=== PATIENT | female | born 1965 | race African-American/Black ===

== ENCOUNTER 2024-06-24 23:21 | Inpatient (IN) | payer OTHER, SELFPAY ==
--- NOTE | ~2024-06-24 | XR_ITS ---
EXAMINATION: X-ray lumbar spine. CLINICAL INFORMATION: Status post fall. COMPARISON: No priors. TECHNIQUE: 4 views lumbar spine. FINDINGS: Grade 1 anterolisthesis L4-5 and to a lesser extent L5-S1. Facet joint hypertrophy at the L4-5 and L5-S1 levels. Endplate sclerosis at multiple levels. Decreased intervertebral disc height at L5-S1. Levoconvex curvature apex at L3. No acute cortical disruption. No lytic or blastic lesions. XR/XR lumbar spine 4V min IMPRESSION: Spondylosis L4-5 and L5-S1 resulting in grade 1 anterolisthesis. No acute fracture. Electronically signed by: Marco Antonio Magdaleno MD 06/29/2024 09:44 AM MARCO
[2024-06-24 23:29] VITALS: BP 122/65; PULSE 69; RESP 18; TEMP 36.1; O2SAT 95; BMI 47.7
[2024-06-24 23:52] LABS: MANUAL DIFF FLAG NO
[2024-06-24 23:53] LABS: Basophils Percent Auto 0.4 % (0-2); Eosinophils Absolute Auto 0.1 X10*3/uL (0.0-0.4); Eosinophils Percent Auto 1.8 % (0-4); Hematocrit 39.8 % (37.0-47.0); Hemoglobin 12.7 g/dl (12.0-16.0); Imm Gran Abs Auto 0.02 X10*3/uL (0.00-0.03); Imm Gran Pct Auto 0.3 % (0.0-0.4); Lymphocytes Percent Auto 25.1 % (20-40); Mean Corpuscular HGB Conc 31.9 g/dl (31.0-35.0); Mean Corpuscular Hemoglobin 25.2 pg (27.0-33.0); Mean Platelet Volume 9.1 fL (9.4-12.3); Monocytes Absolute Auto 0.6 X10*3/uL (0.1-1.2); Monocytes Percent Auto 8.1 % (2-11); Neutrophils Percent Auto 64.3 % (45-73); Platelet Count 260 X10*3/uL (160-400); Red Blood Count 5.04 X10*6/uL (4.20-5.50); Red Cell Distribution Width 14.5 % (11.0-16.0); White Blood Count 7.8 X10*3/uL (4.8-10.8)
--- NOTE | 2024-06-25 00:04 | ED.PSYCH ---
HPI - Psych General Chief Complaint: Psychiatric Symptoms Stated Complaint: paranoid Time Seen by Provider: 06/24/24 23:42 Source: patient and EMS Mode of arrival: EMS Limitations: no limitations History of Present Illness ED Provider: Dr. Ngozi Mast HPI Narrative: Patient comes to the emergency room complaining of feeling paranoid, scared of any went home I enter her property. Patient states that for about 6 months she has been seeing shadows moving around. Patient states that this is not the 1st time it happens, happened a few years ago but it only lasted for a few days. Patient states that for the last 6 months she keeps telling herself that she is okay. However, patient now has suicidal thoughts, has considered slitting her throat. Denies hurting herself today prior to arrival. Patient states that she takes her anxiety/depression medications as prescribed Related Data Home Medications ?Medication ?Instructions ?Recorded ?Confirmed albuterol 90 mcg-budesonide 80 2 inh inhalation Q4H PRN wheezing 06/24/24 06/24/24 mcg/actuation HFA aerosol inhaler (Airsupra) lamotrigine 250 mg tablet,extended 250 mg PO DAILY 06/24/24 06/24/24 release 24 hr melatonin 10 mg tablet 10 mg PO BEDTIME 06/24/24 06/24/24 venlafaxine 225 mg tablet,extended 225 mg PO DAILY 06/24/24 06/24/24 release 24 hr gabapentin 600 mg tablet 1,200 mg PO TID 06/25/24 06/25/24 levocetirizine 5 mg tablet 5 mg PO DAILY PRN Allergy Symptoms 06/25/24 06/25/24 Allergies Allergy/AdvReac Type Severity Reaction Status Date / Time seafood Allergy Itching Verified 06/24/24 23:32 Review of Systems Review of Systems: Constitutional : No Weight loss, No Fever, No Chills, No Night Sweats, No Fatigue, No Malaise ENT/Mouth : No Hearing loss, No Ear Pain, No Nasal Congestion, No Sinus Pain, No Hoarseness, No sore throat, No Rhinorrhea, No Swallowing Difficulty Eyes: No Eye Pain, No Swelling, No Redness, No Foreign Body, No Discharge, No Vision Changes Cardiovascular : No Chest Pain, No SOB, No Dyspnea on Exertion, No Orthopnea, No Edema, No Palpitations Respiratory : No Cough, No Sputum, No Wheezing, No Smoke Exposure, No Dyspnea Gastrointestinal : No Nausea, No Vomiting, No Diarrhea, No Constipation, No abdominal Pain, No Hematochezia, No Melena Genitourinary : no irregular bleeding, No Dysuria, No Urinary Frequency, No Hematuria, No Urinary Incontinence, No Urgency, No Flank Pain, No Urinary Flow Changes, No Hesitancy Musculoskeletal : No joint pain, No Myalgias, No Joint Swelling Skin : No Skin Lesions, No rash Neuro : No Weakness, No Numbness, No Paresthesias, No Loss of Consciousness, No Dizziness, No Headache Psych : Complaining of anxiety, depression, seeing shadows for the last 6 months, denies HI, states that she has considered slitting her throat Heme/Lymph: No Bruising, No Bleeding,No Lymphadenopathy Endocrine : No Polyuria, No Polydipsia, No Temperature Intolerance PMFSH Past Medical History Medical History Anxiety and depression Social History Social History Advance Directives: No Advance Directives Information Provided: Yes Do you have a plan to hurt others: No Plan Physical Exam Vital Signs: Vital Signs: Last Vital Signs Temp 97 F 06/24/24 23:29 Pulse 69 06/24/24 23:29 Resp 18 06/24/24 23:29 BP 122/65 06/24/24 23:29 Pulse Ox 95 06/24/24 23:29 O2 Del Method Room Air 06/24/24 23:29 BMI result Body Mass Index 47.7 Const: Other: Appearance: Alert. Oriented X3. No acute distress. Eyes: Pupils equal, round and reactive to light. ENT: Pharynx normal. Neck: Normal inspection. Neck supple. No lymph nodes noted. No crepitus CVS: Normal heart rate and rhythm. Pulses normal. Normal S1 and S2 Respiratory: No respiratory distress. Breath sounds normal. No Wheezing. No rales Abdomen: Soft and nontender. No rigidity. No distention. Skin: Skin warm and dry. Normal skin color. Normal skin turgor. Extremities: No lower extremity edema. No Lacerations. No Rash Neuro: Oriented X 3. No motor deficit. No sensory deficit. Moving all extremities. No slurred speech. CN 2 through 12 grossly intact Psych: calm, cooperative, tearful Course Course Course Narrative: Prior to coming to the hospital, patient was seen by [facility]. Disposition is still pending Patient is on a Section 12 Care team consult pending Physician observation started at 00:05 Medical Decision Making Medical Decision Making MDM Narrative: Patient's hematology chemistries do not show any acute abnormality, alcohol level negative Care team: Recommendations inpatient bed search. Patient remains on a Section 12 Urinalysis and urine toxicology pending Differential Diagnosis Differential Diagnoses: The differential diagnosis associated with the presentation includes (Anxiety, depression, bipolar disorder, schizophrenia) Admission/Observation Consideration of admission/observation: Escalation of care including admission/observation considered (Patient is under a section 12 waiting to be seen by the care team to determine patient's disposition, may need inpatient level of care) Lab Data 06/24/24 23:47 06/24/24 23:47 Labs: Lab Results 06/24/24 Range/Units 23:47 WBC 7.8 (4.8-10.8) X10*3/uL RBC 5.04 (4.20-5.50) X10*6/uL Hgb 12.7 (12.0-16.0) g/dl Hct 39.8 (37.0-47.0) % MCV 79.0 L (80.0-98.0) fL MCH 25.2 L (27.0-33.0) pg MCHC 31.9 (31.0-35.0) g/dl RDW 14.5 (11.0-16.0) % Plt Count 260 (160-400) X10*3/uL MPV 9.1 L (9.4-12.3) fL Immature Gran % (Auto) 0.3 (0.0-0.4) % Neut % (Auto) 64.3 (45-73) % Lymph % (Auto) 25.1 (20-40) % [place]ham % (Auto) 8.1 (2-11) % Eos % (Auto) 1.8 (0-4) % Baso % (Auto) 0.4 (0-2) % Lymph # (Auto) 2.0 (1.2-4.9) X10*3/uL [place]ham # (Auto) 0.6 (0.1-1.2) X10*3/uL Eos # (Auto) 0.1 (0.0-0.4) X10*3/uL Baso # (Auto) 0.0 (0.0-0.2) X10*3/uL Abs Immat Gran (auto) 0.02 (0.00-0.03) X10*3/uL Absolute Neuts (auto) 5.0 (2.0-8.3) x10*3/uL Absolute Nucleated RBC 0.000 (0.0-0.012) X10*3/uL Nucleated RBC % (auto) 0.0 (0.0-0.2) /100WBC Sodium 140 (135-145) mmol/L Potassium 4.1 (3.3-5.1) mmol/L Chloride 106 (96-108) mmol/L Carbon Dioxide 26 (22-29) mmol/L Anion Gap 12 (12-20) BUN 9 (9-16) mg/dL Creatinine 0.82 (0.5-1.4) mg/dL Estim Creat Clear Calc 95.9 Estimated GFR > 60 Random Glucose 101 (60-115) mg/dL Calcium 9.7 (8.4-10.2) mg/dL Total Bilirubin 0.4 (0.0-1.0) mg/dL AST 23 (5-31) U/L ALT 15 (0-31) U/L Alkaline Phosphatase 87 (39-117) U/L Total Protein 7.9 (6.5-8.0) g/dL Albumin 4.3 (3.5-5.0) g/dL Salicylates < 5.0 L (15-30) mg/dL Acetaminophen < 3 (<30) mcg/mL Ethyl Alcohol < 10 mg/dL Critical Care Time Critical Care Time Critical Care Time: Yes Total Critical Care Time: 35 Attestation: I have personally provided critical care time. Time includes review of lab data, radiology results, discussion with consultants, and monitoring for potential decompensation. Intervention performed as documented. Discharge Plan Discharge Clinical Impression: Suicidal ideation, Paranoid, Visual hallucination Patient Disposition: Still a Patient Prescriptions: No Action venlafaxine 225 mg tablet extended release 24hr 225 mg PO DAILY lamotrigine 250 mg tablet extended release 24hr 250 mg PO DAILY Airsupra 90-80 mcg/actuation HFA aerosol inhaler 2 inh inhalation Q4H PRN (Reason: wheezing) melatonin 10 mg tablet 10 mg PO BEDTIME gabapentin 600 mg tablet 1,200 mg PO TID levocetirizine 5 mg tablet 5 mg PO DAILY PRN (Reason: Allergy Symptoms) Print Language: Belizean
[2024-06-25 00:09] LABS: Alanine Aminotransferase 15 U/L (0-31); Albumin Level 4.3 g/dL (3.5-5.0); Alkaline Phosphatase 87 U/L (39-117); Anion Gap 12 (12-20); Aspartate Amino Transferase 23 U/L (5-31); Bilirubin Total 0.4 mg/dL (0.0-1.0); Blood Urea Nitrogen 9 mg/dL (9-16); Calcium 9.7 mg/dL (8.4-10.2); Carbon Dioxide 26 mmol/L (22-29); Chloride 106 mmol/L (96-108); Creatinine Clr Calc Pharmacy 95.9; Estimated Glomerular Filt Rate > 60; Ethanol < 10 mg/dL; Glucose Random 101 mg/dL (60-115); Potassium 4.1 mmol/L (3.3-5.1); Sodium 140 mmol/L (135-145); Total Protein 7.9 g/dL (6.5-8.0)
[2024-06-25 00:10] LABS: Acetaminophen LAB < 3 mcg/mL (<30); Salicylate < 5.0 mg/dL (15-30)
[2024-06-25 00:14] LABS: Bacteria Urine 1+ (None Seen); Hyaline Casts Urine 0-2 /LPF (0-2)
[2024-06-25 00:18] LABS: Appearance Urine Hazy; Color Urine Yellow; Glucose Urine UA Negative (Negative); Leukocyte Esterase Urine Trace (Negative); Nitrite Urine Negative (Negative); Specific Gravity - Urine >= 1.030 (1.005-1.025); UACC Culture Trigger YES; UMIC TRIGGER UACC YES; Urine Blood Trace (Negative); Urine Ketones Trace mg/dL (Negative); Urine Protein Trace mg/dL (Neg-Trace)
[2024-06-25 00:23] LABS: Amphetamine Screen Urine Not Detected (Not Detect); Barbiturates, Urine Not Detected (Not Detect); Benzodiazepines Screen Urine Not Detected (Not Detect); Buprenorphine Scr Not Detected (Not Detect); Cannabinoid Screen Urine POSITIVE (Not Detect); Cocaine Screen Urine Not Detected (Not Detect); Fentanyl, urine Not Detected (Not Detect); Methadone Screen, Urine Not Detected (Not Detect); Opiate Screen Urine Not Detected (Not Detect); Oxycodone Screen Urine Not Detected (Not Detect); Phencyclidine Screen Urine Not Detected (Not Detect)
--- NOTE | 2024-06-25 06:18 | PC.NURSE ---
Patient slept through the night, no distress observed/reported, disposition per [facility] is section 12 inpatient bed search, 15 minutes safety check, no behavior and safety concerns, VSS, med rec completed/pending provider's approval will continue to monitor
[2024-06-25 07:31] VITALS: BP 152/79; PULSE 78; RESP 18; TEMP 36.7; O2SAT 94
--- NOTE | 2024-06-25 09:43 | PC.NURSE ---
Awaiting med verification per pharmacy at this time.
--- NOTE | 2024-06-25 10:08 | PHA.MEDREC ---
Addendum entered by Yohannes Su RPh 06/25/24 10:27: MED REC CHECKED BY [facility] Original Note: Pharmacy Consult ? Medication Reconciliation Pharmacy has completed the medication reconciliation. Spoke with patient to confirm medications. She has not started venlafaxine 225, it needs a PA so she has not picked it up yet, she is still taking the 150 mg. Melatonin and levocetirizine are as needed. She confirmed gabapentin dosing. She is no longer taking Mounjaro, last had 2 weeks ago.
--- NOTE | 2024-06-25 10:12 | PC.NURSE ---
Awaiting pharmacy verification for 09:00 meds
[2024-06-25] MEDS: Venlafaxine HCl ER 75 MG CAP.ER.24H 150 MG PO (11:19)
[2024-06-25] MEDS: Gabapentin 600 MG TABLET 1200 MG PO ×3 (11:19→20:38)
[2024-06-25 17:28] VITALS: BP 148/75; PULSE 66; RESP 13; TEMP 36.2; O2SAT 95
[2024-06-25] MEDS: Melatonin 3 MG TABLET 9 MG PO (20:38)
[2024-06-25] MEDS: lamoTRIgine 100 MG TABLET PO (20:38)
--- NOTE | 2024-06-25 20:52 | PC.NURSE ---
patient calm and cooperative at this time resting comfortably in room watching TV with no complaints.
--- NOTE | 2024-06-25 23:30 | PC.NURSE ---
assumed care for this patient at 2330; patient awake and ambulating through the unit to the bathroom and back to room with steady gait. Given water per request.
--- NOTE | 2024-06-26 | ECG_ITS ---
Test Reason : PROLONGED QTC Blood Pressure : / mmHG Vent. Rate : 062 BPM Atrial Rate : 062 BPM P-R Int : 186 ms QRS Dur : 098 ms QT Int : 416 ms P-R-T Axes : 065 -11 -26 degrees QTc Int : 422 ms Normal sinus rhythm Nonspecific ST and T wave abnormality T inversions inferior leads Abnormal ECG No previous ECGs available Referred By: Ngozi Mast Electronically Signed By:EDE STORM
[2024-06-26 01:30] VITALS: BP 142/76; PULSE 80; RESP 17; TEMP 36.8; O2SAT 94
--- NOTE | 2024-06-26 07:51 | PC.NURSE ---
Assumed care of patient at 0645, patient appears to be in no apparent distress this am, calm and cooperative, alert and oriented x4. Patient aware of plan of care for inpatient bedsearch
[2024-06-26] MEDS: Gabapentin 600 MG TABLET 1200 MG PO ×3 (08:19→20:12)
[2024-06-26] MEDS: Venlafaxine HCl ER 75 MG CAP.ER.24H 150 MG PO (08:19)
[2024-06-26] MEDS: lamoTRIgine 100 MG TABLET PO ×2 (08:19→20:11)
[2024-06-26 14:53] VITALS: BP 135/62; PULSE 77; RESP 18; TEMP 36.5; O2SAT 95; BMI 46.0
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
[2024-06-26] MEDS: Flu Vacc TS2024-25(6mos up)/PF 0.5 ML SYRINGE IM (18:59)
[2024-06-26 20:00] VITALS: BP 138/65; PULSE 68; RESP 18; TEMP 36.5; O2SAT 96
[2024-06-26] MEDS: Melatonin 3 MG TABLET 9 MG PO (20:13)
[2024-06-27 08:00] VITALS: BP 131/63; PULSE 73; RESP 16; TEMP 36.4; O2SAT 93
[2024-06-27] MEDS: Gabapentin 600 MG TABLET 1200 MG PO ×3 (08:35→22:56)
[2024-06-27] MEDS: Venlafaxine HCl ER 75 MG CAP.ER.24H 150 MG PO (08:35)
[2024-06-27] MEDS: lamoTRIgine 100 MG TABLET PO ×2 (08:36→22:56)
[2024-06-27] MEDS: Nystatin Powder 15 GM BOTTLE 1 APPL TOPICAL ×2 (09:01→23:04)
[2024-06-27 09:41] LABS: Estimated Average Glucose 111 mg/dL; Hemoglobin A1C 118.1235 umol/L; Hemoglobin A1c % 5.5 % (<6.0); Total Hemoglobin (HGBA1C) 3205.1357 umol/L
[2024-06-27 09:54] LABS: Cholesterol 189 mg/dL (<200); HDL Cholesterol 50 mg/dL (>40); LDL Cholesterol Calculated 128 mg/dL (<100); Triglycerides 58 mg/dL (<150)
[2024-06-27 10:09] LABS: TSH reflex Free T4 1.66 uIU/mL (0.32-4.0)
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
[2024-06-27] MEDS: Milk of Magnesia 30 ML ORAL.SUSP PO (18:34)
[2024-06-27 19:37] VITALS: BP 137/79; PULSE 67; RESP 16; TEMP 36.1; O2SAT 97
[2024-06-27] MEDS: Melatonin 3 MG TABLET 9 MG PO (22:56)
[2024-06-27] MEDS: OLANZapine 5 MG TABLET PO (23:16)
--- NOTE | 2024-06-28 06:38 | PC.RT ---
pt did not go on cpap due to no sitter available.
[2024-06-28 08:00] VITALS: BP 117/58; PULSE 59; RESP 16; TEMP 36.3; O2SAT 96
[2024-06-28] MEDS: OLANZapine 5 MG TABLET PO ×2 (08:41→20:36)
[2024-06-28] MEDS: Gabapentin 600 MG TABLET 1200 MG PO ×3 (08:41→20:36)
[2024-06-28] MEDS: Venlafaxine HCl ER 75 MG CAP.ER.24H 150 MG PO (08:41)
[2024-06-28] MEDS: lamoTRIgine 100 MG TABLET PO ×2 (08:41→20:36)
--- NOTE | 2024-06-28 09:15 | MHC.AU.PHL ---
Hearing Instrument Fitting- Pediatric- Left Ear Date of Visit: Diploma Medical Assistant Used: Hearing Instrument(s) Dispensed: Left Ear: Special Services Supervisor: Model: Serial Number: Repair Warranty: Loss and Damage Warranty: Service Plan: Battery Size: Color: Patrol Judge: Tubing: Type of Dome: Type of Mold: Type of Wax Guard: Accessories/Assistive Technology: Summary of Fitting: Recommendations: Recommendations: Recommendations: Diagnosis Code(s): Primary Diagnosis: Secondary Diagnosis: Services Performed: Hearing Aid Evaluation Type: Ear Impression (Quantity): Earmold (Quantity): Swim Mold (Quantity): Musician's Plug (Quantity): METZGER Dispensing Fees: [employer]GER Product Codes: Fitting Accessories: METZGER Accessories (Quantity): Accessory Description: Hearing Aid Fitting Services: Number of Individual Battery Cells: Package of Wax Guards: METZGER Purchased through [facility] or Outside Vendor: [employer] Maintenance, Minor Repair (Quantity): Patrol Judge Replaced, Out of Warranty: Domes/Tubes: Out of Warranty Repair by Special Services Supervisor: Extended Warranty (1 or 2 Instruments): Cerumen Removal: Loss and Damage Replacement Fee: METZGRE Non-Quantity Charges: Signature: Student/Clinical Fellow: I have reviewed/agreed with student/fellow documentation: Provider:
--- NOTE | 2024-06-28 10:18 | HO.PSYCHPN ---
Subjective Subjective Date of Service: 06/28/24 Reason For Visit: psychosis/SI Subjective Notes: Conditional Voluntary Healthcare Proxy: No Guardianship: No Medical Problems Affecting Mental Status: No Interim History: I have been tired today. I showered, changed the linen, my clothes. I was able to sit in the kitchen and not feel scared, I did feel I needed to get out of the shower quickly. I think the med is starting to work. Pt awake, in bed, reports sedation-?from Olanzapine or depression- I was like this before you gave me new medicine. Less irritable, less fearful she reports. Medication Compliance: Yes Side effects from medications: Yes (?sedation) Attending Groups: No Review of Systems Acute medical concerns: No Medical Review of Systems: unchanged Review of Systems Review of Systems denies Mental Status Exam Mental Status Exam Patient Appearance: Fatigued and Appropriate Patient Orientation: Person, Place, Time and Situation Level of Consciousness: Sedated and Alert Patient Behavior: Talkative, Cooperative, Fatigued, Isolative and Good Eye Contact Mood Description: Flat Affect Description: Flat Patient Cognition Impaired: No Ability to Follow Directions: Good Speech Pattern: Spontaneous Speech Memory Description: Episodic Impaired Hallucinations: None (denies) Delusions: Paranoid Ideation (mild, in the shower) Perceptual Disturbances: Depersonalization and Derealization Thought Process: Rumination Thought Content: positive for Perseveration and positive for Suicidal Ideation (denies) Depressive Symptoms: Sleeping More Than Usual, Increased Fatigue and Thoughts of /Suicide (denies) Judgement: Fair Diagnostics Vital Signs (24Hr): Vital Signs - 24 hr 06/27/24 19:37 06/28/24 08:00 Temperature 96.9 F 97.3 F Pulse Rate 67 59 Respiratory Rate 16 16 Blood Pressure 137/79 117/58 L Pulse Oximetry 97 96 Oxygen Delivery Method Room Air Room Air BMI result Body Mass Index 46.0 Labs 06/24/24 23:47 06/24/24 23:47 Labs: Laboratory Results - last 48 hr 06/27/24 09:05 Estimat Average Glucose 111 Hemoglobin A1c % 5.5 Triglycerides 58 Cholesterol 189 LDL Cholesterol, Calc 128 H HDL Cholesterol 50 TSH 1.66 Medications Medications Current Medications Acetaminophen (Acetaminophen 325 Mg Tablet) 650 mg PO Q6H PRN PRN Reason: Headache/Pain Mild Scale (1-3) Al Hydroxide/Mg Hydroxide (Magnesium Hydrox/Alum Hydrox 30 Ml Oral.Susp) 30 ml PO Q6H PRN PRN Reason: Heartburn/Nausea Gabapentin (Gabapentin 600 Mg Tablet) 1,200 mg PO TID [facility] Last Admin: 06/28/24 08:41 Dose: 1,200 mg Hydroxyzine HCl (Hydroxyzine Hcl 25 Mg Tablet) 25 mg PO Q6H PRN PRN Reason: Anxiety Lamotrigine (Lamotrigine 100 Mg Tablet) 100 mg PO BID [facility] Last Admin: 06/28/24 08:41 Dose: 100 mg Loratadine (Loratadine 10 Mg Tablet) 10 mg PO DAILY PRN PRN Reason: Allergy Symptoms Magnesium Hydroxide (Milk Of Magnesia 30 Ml Oral.Susp) 30 ml PO DAILY PRN PRN Reason: Constipation Last Admin: 06/27/24 18:34 Dose: 30 ml Melatonin (Melatonin 3 Mg Tablet) 9 mg PO BEDTIME [facility] Last Admin: 06/27/24 22:56 Dose: 9 mg Nicotine (Nicotine 21 Mg Patch.Td24) 21 mg TRANSDERMA DAILY PRN PRN Reason: smoking cessation Nicotine Polacrilex (Nicotine Polacrilex 2 Mg Gum) 4 mg BUCCAL Q2H PRN PRN Reason: Nicotine Cravings Non-Formulary Medication (Albuterol-Budesonide [Airsupra]) 2 inhalation INHALE Q4H PRN PRN Reason: wheezing Last Admin: 06/28/24 08:40 Dose: 2 inhalation Nystatin (Nystatin Powder 15 Gm Bottle) 1 appl TOPICAL BID [facility]; Protocol Last Admin: 06/28/24 08:41 Dose: Not Given Olanzapine (Olanzapine 5 Mg Tablet) 5 mg PO TID PRN PRN Reason: agitation Olanzapine (Olanzapine 5 Mg Tablet) 5 mg PO BID [facility] Last Admin: 06/28/24 08:41 Dose: 5 mg Trazodone HCl (Trazodone Hcl 50 Mg Tablet) 50 mg PO BEDTIME MRX1 PRN PRN Reason: Insomnia Venlafaxine HCl (Venlafaxine Hcl Er 75 Mg Cap.Er.24h) 150 mg PO DAILY [facility] Last Admin: 06/28/24 08:41 Dose: 150 mg Allergies Allergies Allergy/AdvReac Type Severity Reaction Status Date / Time seafood Allergy Itching Verified 06/24/24 23:32 Assessment & Plan Assessment & Plan (1) Severe recurrent major depression w/psychotic features, mood-congruent: Status: Acute Code(s): F33.3 - Major depressive disorder, recurrent, severe with psychotic symptoms Plan Recurrent major depression with psychosis, ?Schizoaffective disorder. Plan: Admit, CV, 15 minute checks Collateral contacts Diagnostics as needed Medication assessment Olanzapine 5 mg bid Encourage full milieu 06/28/24- Continue plan/regime. Reason for continued inpatient stay Substantial Risk for: rapid decompensation Time Spent With Patient Time: Total time managing care of this patient today ____ minutes.
[2024-06-28 20:00] VITALS: BP 104/58; PULSE 57; RESP 15; TEMP 36.6; O2SAT 95
[2024-06-28] MEDS: Melatonin 3 MG TABLET 9 MG PO (20:36)
[2024-06-29 00:07] VITALS: RESP 20
[2024-06-29 05:30] VITALS: BP 125/61; PULSE 57; TEMP 35.9; O2SAT 98
--- NOTE | 2024-06-29 05:46 | PC.NURSE ---
At approximately 0525, this screen writer was notified by staff that this patient had fallen.This screen writer entered the patient's room to see the patient sitting just inside the bathroom doorway. There were no injuries or deformities noted. The patient reported that she had bent over to put her sock on, and fell on my butt. VSS. Appropriate parties notified and patient assisted to chair.
[2024-06-29 06:12] VITALS: BP 125/61; PULSE 57; RESP 15; TEMP 35.9
[2024-06-29 07:51] VITALS: BP 93/44; PULSE 51; TEMP 36.2; O2SAT 96
[2024-06-29] MEDS: Venlafaxine HCl ER 75 MG CAP.ER.24H 150 MG PO (10:06)
[2024-06-29] MEDS: Gabapentin 600 MG TABLET 1200 MG PO ×3 (10:06→21:36)
[2024-06-29] MEDS: OLANZapine 5 MG TABLET PO (10:07)
[2024-06-29] MEDS: lamoTRIgine 100 MG TABLET PO ×2 (10:07→21:35)
--- NOTE | 2024-06-29 14:31 | P.PNPSI_ITS ---
Subjective Subjective Date of Service: 06/29/24 Reason For Visit: psychosis/SI Subjective Notes: Conditional Voluntary Healthcare Proxy: No Guardianship: No Medical Problems Affecting Mental Status: No Interim History: Team report pt fell early this a.m. LS Spine xray ordered Reports ongoing SI, voices. Reports hx of ECT. Consult requested. Discussed ECT and feeling COVID did interfere with completion of treatments- they sent me to a covid unit, I felt they did not want me around. PT consult ordered for walker use-pt states she would feel more comfortable with added support from a walker. Medication Compliance: Yes Side effects from medications: No Attending Groups: Intermittent Review of Systems Acute medical concerns: No Medical Review of Systems: unchanged Review of Systems Review of Systems as noted in HPI Mental Status Exam Mental Status Exam Patient Appearance: Fatigued and Appropriate Patient Orientation: Person, Place, Time and Situation Level of Consciousness: Sedated and Alert Patient Behavior: Talkative, Cooperative, Fatigued, Isolative and Good Eye Contact Mood Description: Flat Affect Description: Flat Patient Cognition Impaired: No Ability to Follow Directions: Good Speech Pattern: Spontaneous Speech Memory Description: Episodic Impaired Hallucinations: None (denies) Delusions: Paranoid Ideation (mild, in the shower) Perceptual Disturbances: Depersonalization and Derealization Thought Process: Rumination Thought Content: positive for Perseveration and positive for Suicidal Ideation (denies) Depressive Symptoms: Sleeping More Than Usual, Increased Fatigue and Thoughts of /Suicide (denies) Judgement: Fair Diagnostics Vital Signs (24Hr): Vital Signs - 24 hr 06/28/24 20:00 06/29/24 00:07 06/29/24 05:30 Temperature 98 F 96.6 F L Pulse Rate 57 57 Respiratory Rate 15 20 Blood Pressure 104/58 L 125/61 Pulse Oximetry 95 98 Oxygen Delivery Method Room Air 06/29/24 06:12 06/29/24 07:51 Temperature 96.6 F L 97.1 F Pulse Rate 57 51 Respiratory Rate 15 Blood Pressure 125/61 93/44 L Pulse Oximetry 96 Oxygen Delivery Method Room Air BMI result Body Mass Index 46.0 Labs 06/24/24 23:47 06/24/24 23:47 Imaging Radiology Impressions: ITS Impressions Lumbar Spine X-Ray 06/29/24 09:00 IMPRESSION: Spondylosis L4-5 and L5-S1 resulting in grade 1 anterolisthesis. No acute fracture. Electronically signed by: Marco Antonio Magdaleno MD 06/29/2024 09:44 AM [facility] Medications Medications Current Medications Acetaminophen (Acetaminophen 325 Mg Tablet) 650 mg PO Q6H PRN PRN Reason: Headache/Pain Mild Scale (1-3) Al Hydroxide/Mg Hydroxide (Magnesium Hydrox/Alum Hydrox 30 Ml Oral.Susp) 30 ml PO Q6H PRN PRN Reason: Heartburn/Nausea Gabapentin (Gabapentin 600 Mg Tablet) 1,200 mg PO TID [facility] Last Admin: 06/29/24 10:06 Dose: 1,200 mg Hydroxyzine HCl (Hydroxyzine Hcl 25 Mg Tablet) 25 mg PO Q6H PRN PRN Reason: Anxiety Lamotrigine (Lamotrigine 100 Mg Tablet) 100 mg PO BID [facility] Last Admin: 06/29/24 10:07 Dose: 100 mg Loratadine (Loratadine 10 Mg Tablet) 10 mg PO DAILY PRN PRN Reason: Allergy Symptoms Magnesium Hydroxide (Milk Of Magnesia 30 Ml Oral.Susp) 30 ml PO DAILY PRN PRN Reason: Constipation Last Admin: 06/27/24 18:34 Dose: 30 ml Melatonin (Melatonin 3 Mg Tablet) 9 mg PO BEDTIME [facility] Last Admin: 06/28/24 20:36 Dose: 9 mg Nicotine (Nicotine 21 Mg Patch.Td24) 21 mg TRANSDERMA DAILY PRN PRN Reason: smoking cessation Nicotine Polacrilex (Nicotine Polacrilex 2 Mg Gum) 4 mg BUCCAL Q2H PRN PRN Reason: Nicotine Cravings Non-Formulary Medication (Albuterol-Budesonide [Airsupra]) 2 inhalation INHALE Q4H PRN PRN Reason: wheezing Last Admin: 06/28/24 08:40 Dose: 2 inhalation Nystatin (Nystatin Powder 15 Gm Bottle) 1 appl TOPICAL BID [facility]; Protocol Last Admin: 06/29/24 10:08 Dose: Not Given Olanzapine (Olanzapine 5 Mg Tablet) 5 mg PO TID PRN PRN Reason: agitation Olanzapine (Olanzapine 2.5 Mg Tablet) 2.5 mg PO BID [facility] Trazodone HCl (Trazodone Hcl 50 Mg Tablet) 50 mg PO BEDTIME MRX1 PRN PRN Reason: Insomnia Venlafaxine HCl (Venlafaxine Hcl Er 75 Mg Cap.Er.24h) 150 mg PO DAILY [facility] Last Admin: 06/29/24 10:06 Dose: 150 mg Allergies Allergies Allergy/AdvReac Type Severity Reaction Status Date / Time seafood Allergy Itching Verified 06/24/24 23:32 Assessment & Plan Assessment & Plan (1) Severe recurrent major depression w/psychotic features, mood-congruent: Status: Acute Code(s): F33.3 - Major depressive disorder, recurrent, severe with psychotic symptoms Plan Recurrent major depression with psychosis, ?Schizoaffective disorder. Plan: Admit, CV, 15 minute checks Collateral contacts Diagnostics as needed Medication assessment Olanzapine 5 mg bid Encourage full milieu 06/28/24- Continue plan/regime. 06/29/24_ ECT consult Reason for continued inpatient stay Substantial Risk for: rapid decompensation Time Spent With Patient Time: Total time managing care of this patient today ____ minutes.
[2024-06-29 17:26] VITALS: BMI 46.1
[2024-06-29 20:00] VITALS: BP 117/59; PULSE 69; RESP 16; TEMP 35.9; O2SAT 69
[2024-06-29] MEDS: Melatonin 3 MG TABLET 9 MG PO (21:35)
[2024-06-29] MEDS: OLANZapine 2.5 MG TABLET PO (21:35)
[2024-06-30 00:10] VITALS: RESP 16
--- NOTE | 2024-06-30 05:09 | PC.NURSE ---
Patient awake at this time. 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
[2024-06-30 08:26] VITALS: BP 111/60; PULSE 56; TEMP 35.9; O2SAT 97
[2024-06-30] MEDS: Venlafaxine HCl ER 75 MG CAP.ER.24H 150 MG PO (09:36)
[2024-06-30] MEDS: lamoTRIgine 100 MG TABLET PO ×2 (09:36→20:46)
[2024-06-30] MEDS: Gabapentin 600 MG TABLET 1200 MG PO ×3 (09:37→20:46)
[2024-06-30] MEDS: OLANZapine 2.5 MG TABLET PO ×2 (09:37→20:47)
--- NOTE | 2024-06-30 09:52 | P.PNPSI_ITS ---
Subjective Subjective Date of Service: 06/30/24 Reason For Visit: psychosis/SI Subjective Notes: Conditional Voluntary Healthcare Proxy: No Guardianship: No Medical Problems Affecting Mental Status: No Interim History: Pt seen in [facility] today, walking without her walker. ECT consult pending No questions or concerns today. I just want to feel better, and I feel everyone is working toward this Engaged she reports with peers and [facility]. Medication Compliance: Yes Side effects from medications: Yes (tired) Attending Groups: Intermittent Review of Systems Acute medical concerns: No Medical Review of Systems: unchanged Review of Systems Review of Systems Yes all other systems are reviewed and are negative Mental Status Exam Mental Status Exam Patient Appearance: Fatigued and Appropriate Patient Orientation: Person, Place, Time and Situation Level of Consciousness: Sedated and Alert Patient Behavior: Talkative, Cooperative, Fatigued, Isolative and Good Eye Contact Mood Description: Flat Affect Description: Flat Patient Cognition Impaired: No Ability to Follow Directions: Good Speech Pattern: Spontaneous Speech Memory Description: Episodic Impaired Hallucinations: None (denies) Delusions: Paranoid Ideation (mild, in the shower) Perceptual Disturbances: Depersonalization and Derealization Thought Process: Rumination Thought Content: positive for Perseveration and positive for Suicidal Ideation (denies) Depressive Symptoms: Sleeping More Than Usual, Increased Fatigue and Thoughts of /Suicide (denies) Judgement: Fair Diagnostics Vital Signs (24Hr): Vital Signs - 24 hr 06/29/24 20:00 06/30/24 00:10 06/30/24 08:26 Temperature 96.7 F L 96.6 F L Pulse Rate 69 56 Respiratory Rate 16 16 Blood Pressure 117/59 L 111/60 Pulse Oximetry 69 L 97 Oxygen Delivery Method Room Air Room Air BMI result Body Mass Index 46.1 Labs 06/24/24 23:47 06/24/24 23:47 Imaging Radiology Impressions: ITS Impressions Lumbar Spine X-Ray 06/29/24 09:00 IMPRESSION: Spondylosis L4-5 and L5-S1 resulting in grade 1 anterolisthesis. No acute fracture. Electronically signed by: Marco Antonio Magdaleno MD 06/29/2024 09:44 AM [facility] Medications Medications Current Medications Acetaminophen (Acetaminophen 325 Mg Tablet) 650 mg PO Q6H PRN PRN Reason: Headache/Pain Mild Scale (1-3) Al Hydroxide/Mg Hydroxide (Magnesium Hydrox/Alum Hydrox 30 Ml Oral.Susp) 30 ml PO Q6H PRN PRN Reason: Heartburn/Nausea Gabapentin (Gabapentin 600 Mg Tablet) 1,[address] [facility] Last Admin: 06/30/24 09:37 Dose: 1,200 mg Hydroxyzine HCl (Hydroxyzine Hcl 25 Mg Tablet) 25 mg PO Q6H PRN PRN Reason: Anxiety Lamotrigine (Lamotrigine 100 Mg Tablet) [address] [facility] Last Admin: 06/30/24 09:36 Dose: 100 mg Loratadine (Loratadine 10 Mg Tablet) 10 mg PO DAILY PRN PRN Reason: Allergy Symptoms Magnesium Hydroxide (Milk Of Magnesia 30 Ml Oral.Susp) 30 ml PO DAILY PRN PRN Reason: Constipation Last Admin: 06/27/24 18:34 Dose: 30 ml Melatonin (Melatonin 3 Mg Tablet) [address] [facility] Last Admin: 06/29/24 21:35 Dose: 9 mg Nicotine (Nicotine 21 Mg Patch.Td24) 21 mg TRANSDERMA DAILY PRN PRN Reason: smoking cessation Nicotine Polacrilex (Nicotine Polacrilex 2 Mg Gum) 4 mg BUCCAL Q2H PRN PRN Reason: Nicotine Cravings Non-Formulary Medication (Albuterol-Budesonide [Airsupra]) 2 inhalation INHALE Q4H PRN PRN Reason: wheezing Last Admin: 06/28/24 08:40 Dose: 2 inhalation Nystatin (Nystatin Powder 15 Gm Bottle) [address] [facility]; Protocol Last Admin: 06/30/24 09:37 Dose: Not Given Olanzapine (Olanzapine 5 Mg Tablet) 5 mg PO TID PRN PRN Reason: agitation Olanzapine (Olanzapine 2.5 Mg Tablet) 2.[address] [facility] Last Admin: 06/30/24 09:37 Dose: 2.5 mg Trazodone HCl (Trazodone Hcl 50 Mg Tablet) 50 mg PO BEDTIME MRX1 PRN PRN Reason: Insomnia Venlafaxine HCl (Venlafaxine Hcl Er 75 Mg Cap.Er.24h) [address] [facility] Last Admin: 06/30/24 09:36 Dose: 150 mg Allergies Allergies Allergy/AdvReac Type Severity Reaction Status Date / Time seafood Allergy Itching Verified 06/24/24 23:32 Assessment & Plan Assessment & Plan (1) Severe recurrent major depression w/psychotic features, mood-congruent: Status: Acute Code(s): F33.3 - Major depressive disorder, recurrent, severe with psychotic symptoms Plan Recurrent major depression with psychosis, ?Schizoaffective disorder. Plan: Admit, CV, 15 minute checks Collateral contacts Diagnostics as needed Medication assessment Olanzapine 5 mg bid Encourage full milieu 06/28/24- Continue plan/regime. 06/30/24- Continue regime Reason for continued inpatient stay Substantial Risk for: rapid decompensation Time Spent With Patient Time: Total time managing care of this patient today ____ minutes.
[2024-06-30 20:00] VITALS: BP 127/87; PULSE 94; RESP 18; TEMP 36.9; O2SAT 97
[2024-06-30] MEDS: Melatonin 3 MG TABLET 9 MG PO (20:46)
[2024-06-30] MEDS: OLANZapine 5 MG TABLET PO (20:47)
[2024-06-30] MEDS: traZODone HCL 50 MG TABLET PO (20:59)
[2024-06-30 23:53] VITALS: RESP 18
[2024-07-01 08:00] VITALS: BP 109/57; PULSE 62; TEMP 36.2; O2SAT 94
[2024-07-01] MEDS: lamoTRIgine 100 MG TABLET PO ×2 (09:04→21:21)
[2024-07-01] MEDS: Gabapentin 600 MG TABLET 1200 MG PO ×3 (09:04→21:22)
[2024-07-01] MEDS: Venlafaxine HCl ER 75 MG CAP.ER.24H 150 MG PO (09:05)
[2024-07-01] MEDS: OLANZapine 2.5 MG TABLET PO ×2 (09:06→21:21)
--- NOTE | 2024-07-01 13:51 | P.PNPSI_ITS ---
Subjective Subjective Date of Service: 07/01/24 Reason For Visit: psychosis/SI Interim History: Met with patient; discussed with team Patient reports that she is starting to feel little better.. She says she feels more awake and noticed herself laughing at times. She also says her head is more clear, her mind more open and the cloud. is lifting.. Discussed patient's medications which she is tolerating well. Agreed to increase venlafaxine dose. Currently no SI Mental Status Exam Mental Status Exam Narrative: Pt is alert and oriented; behavior is cooperative, friendly and calm; patient is not in distress; dressed in hospital attire with unkempt hair but adequate hygiene; mood is described as depressed but a little better and affect congruent, a little brighter; eye contact appropriate; Speech is normal rate, volume and prosody and not pressured; still some psychomotor retardation present; thought process is organized and goal directed; Thought content is on tx, dealing with depression; otherwise pertinent to relevant topics and without any delusional content, paranoid ideations or grandiosity; intermittent SI but currently none; no HI; no AVH. Patients insight and judgment impaired Diagnostics Vital Signs (24Hr): Vital Signs - 24 hr 06/30/24 20:00 06/30/24 23:53 07/01/24 08:00 Temperature 98.4 F 97.1 F Pulse Rate 94 62 Respiratory Rate 18 18 Blood Pressure 127/87 109/57 L Pulse Oximetry 97 94 Oxygen Delivery Method Room Air Room Air BMI result Body Mass Index 46.1 Labs 06/24/24 23:47 06/24/24 23:47 Imaging Radiology Impressions: ITS Impressions Lumbar Spine X-Ray 06/29/24 09:00 IMPRESSION: Spondylosis L4-5 and L5-S1 resulting in grade 1 anterolisthesis. No acute fracture. Electronically signed by: Marco Antonio Magdaleno MD 06/29/2024 09:44 AM [facility] [place] Medications Current Medications Acetaminophen (Acetaminophen 325 Mg Tablet) 650 mg PO Q6H PRN PRN Reason: Headache/Pain Mild Scale (1-3) Al Hydroxide/Mg Hydroxide (Magnesium Hydrox/Alum Hydrox 30 Ml Oral.Susp) 30 ml PO Q6H PRN PRN Reason: Heartburn/Nausea Gabapentin (Gabapentin 600 Mg Tablet) 1,200 mg PO TID [facility] Last Admin: 07/01/24 09:04 Dose: 1,200 mg Hydroxyzine HCl (Hydroxyzine Hcl 25 Mg Tablet) 25 mg PO Q6H PRN PRN Reason: Anxiety Lamotrigine (Lamotrigine 100 Mg Tablet) 100 mg PO BID [facility] Last Admin: 07/01/24 09:04 Dose: 100 mg Loratadine (Loratadine 10 Mg Tablet) 10 mg PO DAILY PRN PRN Reason: Allergy Symptoms Magnesium Hydroxide (Milk Of Magnesia 30 Ml Oral.Susp) 30 ml PO DAILY PRN PRN Reason: Constipation Last Admin: 06/27/24 18:34 Dose: 30 ml Melatonin (Melatonin 3 Mg Tablet) 9 mg PO BEDTIME [facility] Last Admin: 06/30/24 20:46 Dose: 9 mg Nicotine (Nicotine 21 Mg Patch.Td24) 21 mg TRANSDERMA DAILY PRN PRN Reason: smoking cessation Nicotine Polacrilex (Nicotine Polacrilex 2 Mg Gum) 4 mg BUCCAL Q2H PRN PRN Reason: Nicotine Cravings Non-Formulary Medication (Albuterol-Budesonide [Airsupra]) 2 inhalation INHALE Q4H PRN PRN Reason: wheezing Last Admin: 06/28/24 08:40 Dose: 2 inhalation Nystatin (Nystatin Powder 15 Gm Bottle) 1 appl TOPICAL BID [facility]; Protocol Last Admin: 07/01/24 10:03 Dose: Not Given Olanzapine (Olanzapine 5 Mg Tablet) 5 mg PO TID PRN PRN Reason: agitation Last Admin: 06/30/24 20:47 Dose: 5 mg Olanzapine (Olanzapine 2.5 Mg Tablet) 2.5 mg PO BID [facility] Last Admin: 07/01/24 09:06 Dose: 2.5 mg Trazodone HCl (Trazodone Hcl 50 Mg Tablet) 50 mg PO BEDTIME MRX1 PRN PRN Reason: Insomnia Last Admin: 06/30/24 20:59 Dose: 50 mg Venlafaxine HCl (Venlafaxine Hcl Er 75 Mg Cap.Er.24h) 150 mg PO DAILY [facility] Last Admin: 07/01/24 09:05 Dose: 150 mg Allergies Allergies Allergy/AdvReac Type Severity Reaction Status Date / Time seafood Allergy Itching Verified 06/24/24 23:32 Assessment & Plan Assessment & Plan (1) Severe recurrent major depression w/psychotic features, mood-congruent: Status: Acute Code(s): F33.3 - Major depressive disorder, recurrent, severe with psychotic symptoms Plan Recurrent major depression with psychosis, ?Schizoaffective disorder. Hospital course: 06/28/24- Continue plan/regime. 06/30/24- Continue regime 07/01Patient reports that she is starting to feel little better.. She says she feels more awake and noticed herself laughing at times. She also says her head is more clear, her mind more open and the cloud. is lifting.. Discussed patient's medications which she is tolerating well. Agreed to increase venlafaxine dose. Currently no SI Plan: CV, 15 minute checks INCREASE venlafaxine ER to 187.5 Collateral contacts Diagnostics as needed Medication assessment Olanzapine 5 mg bid Encourage full milieu Patient educated on: diagnosis, medication risk/benefits and therapeutic strategies Informed Consent: understands Reason for continued inpatient stay Substantial Risk for: rapid decompensation and med/psych decompensation Time Spent With Patient Time: Total time managing care of this patient today ____ minutes.
[2024-07-01 19:48] VITALS: BP 129/68; PULSE 84; RESP 18; TEMP 36.1; O2SAT 96
[2024-07-01] MEDS: traZODone HCL 50 MG TABLET PO (21:21)
[2024-07-01] MEDS: Melatonin 3 MG TABLET 9 MG PO (21:21)
[2024-07-01] MEDS: Nystatin Powder 15 GM BOTTLE 1 APPL TOPICAL (21:34)
[2024-07-01 23:34] VITALS: RESP 20
[2024-07-02 07:47] VITALS: BP 121/58; PULSE 61; TEMP 35.9; O2SAT 98
[2024-07-02] MEDS: Nystatin Powder 15 GM BOTTLE 1 APPL TOPICAL (10:37)
[2024-07-02] MEDS: OLANZapine 2.5 MG TABLET PO ×2 (10:37→21:23)
[2024-07-02] MEDS: lamoTRIgine 100 MG TABLET PO ×2 (10:37→21:22)
[2024-07-02] MEDS: Gabapentin 600 MG TABLET 1200 MG PO ×3 (10:42→21:21)
--- NOTE | 2024-07-02 14:52 | P.PNPSI_ITS ---
Subjective Subjective Date of Service: 07/02/24 Reason For Visit: psychosis/SI Interim History: With patient; discussed with team Patient feeling more anxious today and did have some SI which was triggered by worries about losing her memory, and other medical comorbidities. She remains feeling overall better from when she came in but is very worried that it will not remain and that SI could return. Diagnostics Vital Signs (24Hr): Vital Signs - 24 hr 07/01/24 19:48 07/01/24 23:34 07/02/24 07:47 Temperature 96.9 F 96.6 F L Pulse Rate 84 61 Respiratory Rate 18 20 Blood Pressure 129/68 121/58 L Pulse Oximetry 96 98 Oxygen Delivery Method Room Air Room Air BMI result Body Mass Index 46.1 Labs 06/24/24 23:47 06/24/24 23:47 Imaging Radiology Impressions: ITS Impressions Lumbar Spine X-Ray 06/29/24 09:00 IMPRESSION: Spondylosis L4-5 and L5-S1 resulting in grade 1 anterolisthesis. No acute fracture. Electronically signed by: Marco Antonio Magdaleno MD 06/29/2024 09:44 AM [facility] Medications Medications Current Medications Acetaminophen (Acetaminophen 325 Mg Tablet) 650 mg PO Q6H PRN PRN Reason: Headache/Pain Mild Scale (1-3) Al Hydroxide/Mg Hydroxide (Magnesium Hydrox/Alum Hydrox 30 Ml Oral.Susp) 30 ml PO Q6H PRN PRN Reason: Heartburn/Nausea Gabapentin (Gabapentin 600 Mg Tablet) 1,200 mg PO TID [facility] Last Admin: 07/02/24 10:42 Dose: 1,200 mg Hydroxyzine HCl (Hydroxyzine Hcl 25 Mg Tablet) 25 mg PO Q6H PRN PRN Reason: Anxiety Lamotrigine (Lamotrigine 100 Mg Tablet) 100 mg PO BID [facility] Last Admin: 07/02/24 10:37 Dose: 100 mg Loratadine (Loratadine 10 Mg Tablet) 10 mg PO DAILY PRN PRN Reason: Allergy Symptoms Magnesium Hydroxide (Milk Of Magnesia 30 Ml Oral.Susp) 30 ml PO DAILY PRN PRN Reason: Constipation Last Admin: 06/27/24 18:34 Dose: 30 ml Melatonin (Melatonin 3 Mg Tablet) 9 mg PO BEDTIME [facility] Last Admin: 07/01/24 21:21 Dose: 9 mg Nicotine (Nicotine 21 Mg Patch.Td24) 21 mg TRANSDERMA DAILY PRN PRN Reason: smoking cessation Nicotine Polacrilex (Nicotine Polacrilex 2 Mg Gum) 4 mg BUCCAL Q2H PRN PRN Reason: Nicotine Cravings Non-Formulary Medication (Albuterol-Budesonide [Airsupra]) 2 inhalation INHALE Q4H PRN PRN Reason: wheezing Last Admin: 07/02/24 10:44 Dose: 2 inhalation Nystatin (Nystatin Powder 15 Gm Bottle) 1 appl TOPICAL BID [facility]; Protocol Last Admin: 07/02/24 10:37 Dose: 1 appl Olanzapine (Olanzapine 5 Mg Tablet) 5 mg PO TID PRN PRN Reason: agitation Last Admin: 06/30/24 20:47 Dose: 5 mg Olanzapine (Olanzapine 2.5 Mg Tablet) 2.5 mg PO BID [facility] Last Admin: 07/02/24 10:37 Dose: 2.5 mg Trazodone HCl (Trazodone Hcl 50 Mg Tablet) 50 mg PO BEDTIME MRX1 PRN PRN Reason: Insomnia Last Admin: 07/01/24 21:21 Dose: 50 mg Venlafaxine HCl 150 mg/ (Venlafaxine HCl 37.5 mg) 187.5 mg PO DAILY [facility] Last Admin: 07/02/24 10:36 Dose: 187.5 mg Allergies Allergies Allergy/AdvReac Type Severity Reaction Status Date / Time seafood Allergy Itching Verified 06/24/24 23:32 Assessment & Plan Assessment & Plan (1) Severe recurrent major depression w/psychotic features, mood-congruent: Status: Acute Code(s): F33.3 - Major depressive disorder, recurrent, severe with psychotic symptoms Plan Recurrent major depression with psychosis, ?Schizoaffective disorder. Hospital course: 06/28/24- Continue plan/regime. 06/30/24- Continue regime 07/01Patient reports that she is starting to feel little better.. She says she feels more awake and noticed herself laughing at times. She also says her head is more clear, her mind more open and the cloud. is lifting.. Discussed patient's medications which she is tolerating well. Agreed to increase venlafaxine dose. Currently no SI 07/02 Patient feeling more anxious today and did have some SI which was triggered by worries about losing her memory, and other medical comorbidities. She remains feeling overall better from when she came in but is very worried that it will not remain and that SI could return. -likely continue titrating venlafaxine Plan: CV, 15 minute checks INCREASE venlafaxine ER to 187.5 Collateral contacts Diagnostics as needed Medication assessment Olanzapine 5 mg bid Encourage full milieu Patient educated on: diagnosis, medication risk/benefits and therapeutic strategies Informed Consent: understands Reason for continued inpatient stay Substantial Risk for: rapid decompensation and med/psych decompensation Time Spent With Patient Time: Total time managing care of this patient today ____ minutes.
--- NOTE | 2024-07-02 14:54 | HO.PSYCHPN ---
Subjective Subjective Date of Service: 07/02/24 Reason For Visit: psychosis/SI Interim History: Met with patient; discussed with team Diagnostics Vital Signs (24Hr): Vital Signs - 24 hr 07/01/24 19:48 07/01/24 23:34 07/02/24 07:47 Temperature 96.9 F 96.6 F L Pulse Rate 84 61 Respiratory Rate 18 20 Blood Pressure 129/68 121/58 L Pulse Oximetry 96 98 Oxygen Delivery Method Room Air Room Air BMI result Body Mass Index 46.1 Labs 06/24/24 23:47 06/24/24 23:47 Imaging Radiology Impressions: ITS Impressions Lumbar Spine X-Ray 06/29/24 09:00 IMPRESSION: Spondylosis L4-5 and L5-S1 resulting in grade 1 anterolisthesis. No acute fracture. Electronically signed by: Marco Antonio Magdaleno MD 06/29/2024 09:44 AM [facility] Medications Medications Current Medications Acetaminophen (Acetaminophen 325 Mg Tablet) 650 mg PO Q6H PRN PRN Reason: Headache/Pain Mild Scale (1-3) Al Hydroxide/Mg Hydroxide (Magnesium Hydrox/Alum Hydrox 30 Ml Oral.Susp) 30 ml PO Q6H PRN PRN Reason: Heartburn/Nausea Gabapentin (Gabapentin 600 Mg Tablet) 1,200 mg PO TID [facility] Last Admin: 07/02/24 10:42 Dose: 1,200 mg Hydroxyzine HCl (Hydroxyzine Hcl 25 Mg Tablet) 25 mg PO Q6H PRN PRN Reason: Anxiety Lamotrigine (Lamotrigine 100 Mg Tablet) 100 mg PO BID [facility] Last Admin: 07/02/24 10:37 Dose: 100 mg Loratadine (Loratadine 10 Mg Tablet) 10 mg PO DAILY PRN PRN Reason: Allergy Symptoms Magnesium Hydroxide (Milk Of Magnesia 30 Ml Oral.Susp) 30 ml PO DAILY PRN PRN Reason: Constipation Last Admin: 06/27/24 18:34 Dose: 30 ml Melatonin (Melatonin 3 Mg Tablet) 9 mg PO BEDTIME [facility] Last Admin: 07/01/24 21:21 Dose: 9 mg Nicotine (Nicotine 21 Mg Patch.Td24) 21 mg TRANSDERMA DAILY PRN PRN Reason: smoking cessation Nicotine Polacrilex (Nicotine Polacrilex 2 Mg Gum) 4 mg BUCCAL Q2H PRN PRN Reason: Nicotine Cravings Non-Formulary Medication (Albuterol-Budesonide [Airsupra]) 2 inhalation INHALE Q4H PRN PRN Reason: wheezing Last Admin: 07/02/24 10:44 Dose: 2 inhalation Nystatin (Nystatin Powder 15 Gm Bottle) 1 appl TOPICAL BID [facility]; Protocol Last Admin: 07/02/24 10:37 Dose: 1 appl Olanzapine (Olanzapine 5 Mg Tablet) 5 mg PO TID PRN PRN Reason: agitation Last Admin: 06/30/24 20:47 Dose: 5 mg Olanzapine (Olanzapine 2.5 Mg Tablet) 2.5 mg PO BID [facility] Last Admin: 07/02/24 10:37 Dose: 2.5 mg Trazodone HCl (Trazodone Hcl 50 Mg Tablet) 50 mg PO BEDTIME MRX1 PRN PRN Reason: Insomnia Last Admin: 07/01/24 21:21 Dose: 50 mg Venlafaxine HCl 150 mg/ (Venlafaxine HCl 37.5 mg) 187.5 mg PO DAILY [facility] Last Admin: 07/02/24 10:36 Dose: 187.5 mg Allergies Allergies Allergy/AdvReac Type Severity Reaction Status Date / Time seafood Allergy Itching Verified 06/24/24 23:32 Assessment & Plan Assessment & Plan (1) Severe recurrent major depression w/psychotic features, mood-congruent: Status: Acute Code(s): F33.3 - Major depressive disorder, recurrent, severe with psychotic symptoms Plan Recurrent major depression with psychosis, ?Schizoaffective disorder. Hospital course: 06/28/24- Continue plan/regime. 06/30/24- Continue regime 07/01Patient reports that she is starting to feel little better.. She says she feels more awake and noticed herself laughing at times. She also says her head is more clear, her mind more open and the cloud. is lifting.. Discussed patient's medications which she is tolerating well. Agreed to increase venlafaxine dose. Currently no SI 07/02 Patient feeling more anxious today and did have some SI which was triggered by worries about losing her memory, and other medical comorbidities. She remains feeling overall better from when she came in but is very worried that it will not remain and that SI could return. -likely continue titrating venlafaxine Plan: CV, 15 minute checks INCREASE venlafaxine ER to 187.5 Collateral contacts Diagnostics as needed Medication assessment Olanzapine 5 mg bid Encourage full milieu Time Spent With Patient Time: Total time managing care of this patient today ____ minutes.
[2024-07-02 20:00] VITALS: BP 142/72; BP 149/79; PULSE 74; TEMP 36.2; O2SAT 98
[2024-07-02] MEDS: traZODone HCL 50 MG TABLET PO (21:20)
[2024-07-02] MEDS: Melatonin 3 MG TABLET 9 MG PO (21:20)
[2024-07-02 23:07] VITALS: RESP 21
[2024-07-03 08:45] VITALS: BP 109/60; PULSE 66; RESP 20; TEMP 36.2; O2SAT 94
[2024-07-03] MEDS: Gabapentin 600 MG TABLET 1200 MG PO ×3 (08:48→20:50)
[2024-07-03] MEDS: lamoTRIgine 100 MG TABLET PO ×2 (08:49→20:50)
[2024-07-03] MEDS: OLANZapine 2.5 MG TABLET PO (08:49)
[2024-07-03] MEDS: Nystatin Powder 15 GM BOTTLE 1 APPL TOPICAL (08:52)
[2024-07-03] MEDS: Lidocaine 4 % Patch ADH..PATCH 1 PATCH TRANSDERMA (10:21)
--- NOTE | 2024-07-03 16:09 | P.PNPSI_ITS ---
Subjective Subjective Date of Service: 07/03/24 Reason For Visit: psychosis/SI Subjective Notes: Conditional Voluntary Healthcare Proxy: No Guardianship: No Medical Problems Affecting Mental Status: No Interim History: Yary discussed what happened during a previous hospitalization with a precipitous discharge. It appears she was transferred to medicine for medical care and not given the option to return to psychiatry. She reports feeling thrown out and cast out and fears this will happen here. We decided to discuss discharge daily to help her become more comfortable with planning her care. Venlafaxine increased over the weekend. Pt requested increase in Olanzapine today. Discussed possibly having a meeting with her children to discuss issues at home. She will consider. Today she discussed how helpful it is when she takes classes, feels it helps her memory, her physical and emotional well being. Hoping to get back to this when discharged. Medication Compliance: Yes Side effects from medications: No Attending Groups: Yes Review of Systems Acute medical concerns: No Review of Systems Review of Systems Denied today Mental Status Exam Mental Status Exam Patient Appearance: Appropriate Patient Orientation: Person, Place, Time and Situation Level of Consciousness: Alert Patient Behavior: Talkative and Good Eye Contact Mood Description: Depressed Affect Description: Flat Patient Cognition Impaired: No Ability to Follow Directions: Good Speech Pattern: Spontaneous Speech Memory Description: Intact Hallucinations: None Delusions: Not Present Thought Process: Rumination Thought Content: positive for Perseveration and positive for Suicidal Ideation Depressive Symptoms: Increased Anxiety, Unhappiness and Thoughts of /Suicide Judgement: Fair Diagnostics Vital Signs (24Hr): Vital Signs - 24 hr 07/02/24 20:00 07/02/24 20:00 07/02/24 23:07 Temperature 97.1 F Pulse Rate 74 Respiratory Rate 21 H Blood Pressure 149/79 H 142/72 H Pulse Oximetry 98 Oxygen Delivery Method Room Air 07/03/24 08:45 Temperature 97.1 F Pulse Rate 66 Respiratory Rate 20 Blood Pressure 109/60 Pulse Oximetry 94 Oxygen Delivery Method Room Air Blow By BMI result Body Mass Index 46.1 Labs 06/24/24 23:47 06/24/24 23:47 Imaging Radiology Impressions: ITS Impressions Lumbar Spine X-Ray 06/29/24 09:00 IMPRESSION: Spondylosis L4-5 and L5-S1 resulting in grade 1 anterolisthesis. No acute fracture. Electronically signed by: Marco Antonio Magdaleno MD 06/29/2024 09:44 AM [facility] Medications Medications Current Medications Acetaminophen (Acetaminophen 325 Mg Tablet) 650 mg PO Q6H PRN PRN Reason: Headache/Pain Mild Scale (1-3) Al Hydroxide/Mg Hydroxide (Magnesium Hydrox/Alum Hydrox 30 Ml Oral.Susp) 30 ml PO Q6H PRN PRN Reason: Heartburn/Nausea Capsaicin (Capsaicin 0.025% Cream 60 Gm Tube) 1 appl TOPICAL QID PRN; Protocol PRN Reason: knee pain Gabapentin (Gabapentin 600 Mg Tablet) 1,200 mg PO TID [facility] Last Admin: 07/03/24 15:04 Dose: 1,200 mg Hydroxyzine HCl (Hydroxyzine Hcl 25 Mg Tablet) 25 mg PO Q6H PRN PRN Reason: Anxiety Lamotrigine (Lamotrigine 100 Mg Tablet) 100 mg PO BID [facility] Last Admin: 07/03/24 08:49 Dose: 100 mg Lidocaine (Lidocaine 4 % Patch Adh..Patch) 1 patch TRANSDERMA DAILY [facility]; Protocol Last Admin: 07/03/24 10:21 Dose: 1 patch Loratadine (Loratadine 10 Mg Tablet) 10 mg PO DAILY PRN PRN Reason: Allergy Symptoms Magnesium Hydroxide (Milk Of Magnesia 30 Ml Oral.Susp) 30 ml PO DAILY PRN PRN Reason: Constipation Last Admin: 06/27/24 18:34 Dose: 30 ml Melatonin (Melatonin 3 Mg Tablet) 9 mg PO BEDTIME [facility] Last Admin: 07/02/24 21:20 Dose: 9 mg Nicotine (Nicotine 21 Mg Patch.Td24) 21 mg TRANSDERMA DAILY PRN PRN Reason: smoking cessation Nicotine Polacrilex (Nicotine Polacrilex 2 Mg Gum) 4 mg BUCCAL Q2H PRN PRN Reason: Nicotine Cravings Non-Formulary Medication (Albuterol-Budesonide [Airsupra]) 2 inhalation INHALE Q4H PRN PRN Reason: wheezing Last Admin: 07/02/24 21:25 Dose: 2 inhalation Nystatin (Nystatin Powder 15 Gm Bottle) 1 appl TOPICAL BID [facility]; Protocol Last Admin: 07/03/24 08:52 Dose: 1 appl Olanzapine (Olanzapine 5 Mg Tablet) 5 mg PO TID PRN PRN Reason: agitation Last Admin: 06/30/24 20:47 Dose: 5 mg Olanzapine (Olanzapine 5 Mg Tablet) 5 mg PO BID [facility] Trazodone HCl (Trazodone Hcl 50 Mg Tablet) 50 mg PO BEDTIME MRX1 PRN PRN Reason: Insomnia Last Admin: 07/02/24 21:20 Dose: 50 mg Venlafaxine HCl 150 mg/ (Venlafaxine HCl 37.5 mg) 187.5 mg PO DAILY [facility] Last Admin: 07/03/24 08:49 Dose: 187.5 mg Allergies Allergies Allergy/AdvReac Type Severity Reaction Status Date / Time seafood Allergy Itching Verified 06/24/24 23:32 Assessment & Plan Assessment & Plan (1) Severe recurrent major depression w/psychotic features, mood-congruent: Status: Acute Code(s): F33.3 - Major depressive disorder, recurrent, severe with psychotic symptoms Assessment and Plan: 07/03/24 Increase Olanzapine to 5 mg bid from 2.5 mg bid. Reason for continued inpatient stay Substantial Risk for: rapid decompensation Time Spent With Patient Time: Total time managing care of this patient today ____ minutes.
[2024-07-03 20:00] VITALS: BP 139/73; PULSE 72; TEMP 37; O2SAT 96
[2024-07-03] MEDS: Melatonin 3 MG TABLET 9 MG PO (20:51)
[2024-07-03] MEDS: traZODone HCL 50 MG TABLET PO (20:51)
[2024-07-03] MEDS: OLANZapine 5 MG TABLET PO (20:51)
[2024-07-03] MEDS: Magnesium Hydrox/Alum Hydrox 30 ML ORAL.SUSP PO (21:03)
[2024-07-03 23:30] VITALS: PULSE 68; RESP 20; O2SAT 93
[2024-07-04 08:00] VITALS: BP 105/54; PULSE 62; RESP 16; TEMP 36.1; O2SAT 94
[2024-07-04] MEDS: Lidocaine 4 % Patch ADH..PATCH 1 PATCH TRANSDERMA (08:35)
[2024-07-04] MEDS: Nystatin Powder 15 GM BOTTLE 1 APPL TOPICAL ×2 (08:36→21:11)
[2024-07-04] MEDS: Acetaminophen 325 MG TABLET 650 MG PO (08:36)
[2024-07-04] MEDS: OLANZapine 5 MG TABLET PO ×2 (08:38→21:07)
[2024-07-04] MEDS: Gabapentin 600 MG TABLET 1200 MG PO ×3 (08:38→21:07)
[2024-07-04] MEDS: lamoTRIgine 100 MG TABLET PO ×2 (08:38→21:07)
--- NOTE | 2024-07-04 17:26 | P.PNPSI_ITS ---
Subjective Subjective Date of Service: 07/04/24 Reason For Visit: psychosis/SI Subjective Notes: Conditional Voluntary Healthcare Proxy: No Guardianship: No Medical Problems Affecting Mental Status: No Interim History: Attending groups. Discussed today daughter wanting her own apartment, so considering changes in her living situation. Discussed previous admit and precipitous discharge with increase in her anxiety sx. Started to review discharge planning today. Medication Compliance: Yes Side effects from medications: No Attending Groups: Yes Review of Systems Acute medical concerns: No Review of Systems Review of Systems voice is hoarse today removed CPAP at 3am Mental Status Exam Mental Status Exam Patient Appearance: Appropriate Patient Orientation: Person, Place, Time and Situation Level of Consciousness: Alert Patient Behavior: Talkative and Good Eye Contact Mood Description: Depressed Affect Description: Flat Patient Cognition Impaired: No Ability to Follow Directions: Good Speech Pattern: Spontaneous Speech Memory Description: Intact Hallucinations: None Delusions: Not Present Thought Process: Rumination Thought Content: positive for Perseveration and positive for Suicidal Ideation Depressive Symptoms: Increased Anxiety, Unhappiness and Thoughts of /Suicide Judgement: Fair Diagnostics Vital Signs (24Hr): Vital Signs - 24 hr 07/03/24 20:00 07/03/24 23:30 07/04/24 08:00 Temperature 98.6 F 96.9 F Pulse Rate 72 62 Respiratory Rate 20 16 Blood Pressure 139/73 105/54 L Pulse Oximetry 96 94 Oxygen Delivery Method Room Air Room Air BMI result Body Mass Index 46.1 Labs 06/24/24 23:47 06/24/24 23:47 Imaging Radiology Impressions: ITS Impressions Lumbar Spine X-Ray 06/29/24 09:00 IMPRESSION: Spondylosis L4-5 and L5-S1 resulting in grade 1 anterolisthesis. No acute fracture. Electronically signed by: Marco Antonio Magdaleno MD 06/29/2024 09:44 AM [facility] Medications Medications Current Medications Acetaminophen (Acetaminophen 325 Mg Tablet) 650 mg PO Q6H PRN PRN Reason: Headache/Pain Mild Scale (1-3) Last Admin: 07/04/24 08:36 Dose: 650 mg Al Hydroxide/Mg Hydroxide (Magnesium Hydrox/Alum Hydrox 30 Ml Oral.Susp) 30 ml PO Q6H PRN PRN Reason: Heartburn/Nausea Last Admin: 07/03/24 21:03 Dose: 30 ml Capsaicin (Capsaicin 0.025% Cream 60 Gm Tube) 1 appl TOPICAL QID PRN; Protocol PRN Reason: knee pain Gabapentin (Gabapentin 600 Mg Tablet) 1,200 mg PO TID [facility] Last Admin: 07/04/24 15:06 Dose: 1,200 mg Hydroxyzine HCl (Hydroxyzine Hcl 25 Mg Tablet) 25 mg PO Q6H PRN PRN Reason: Anxiety Lamotrigine (Lamotrigine 100 Mg Tablet) 100 mg PO BID [facility] Last Admin: 07/04/24 08:38 Dose: 100 mg Lidocaine (Lidocaine 4 % Patch Adh..Patch) 1 patch TRANSDERMA DAILY [facility]; Protocol Last Admin: 07/04/24 08:35 Dose: 1 patch Loratadine (Loratadine 10 Mg Tablet) 10 mg PO DAILY PRN PRN Reason: Allergy Symptoms Magnesium Hydroxide (Milk Of Magnesia 30 Ml Oral.Susp) 30 ml PO DAILY PRN PRN Reason: Constipation Last Admin: 06/27/24 18:34 Dose: 30 ml Melatonin (Melatonin 3 Mg Tablet) 9 mg PO BEDTIME [facility] Last Admin: 07/03/24 20:51 Dose: 9 mg Nicotine (Nicotine 21 Mg Patch.Td24) 21 mg TRANSDERMA DAILY PRN PRN Reason: smoking cessation Nicotine Polacrilex (Nicotine Polacrilex 2 Mg Gum) 4 mg BUCCAL Q2H PRN PRN Reason: Nicotine Cravings Non-Formulary Medication (Albuterol-Budesonide [Airsupra]) 2 inhalation INHALE Q4H PRN PRN Reason: wheezing Last Admin: 07/04/24 08:37 Dose: 2 inhalation Nystatin (Nystatin Powder 15 Gm Bottle) 1 appl TOPICAL BID [facility]; Protocol Last Admin: 07/04/24 08:36 Dose: 1 appl Olanzapine (Olanzapine 5 Mg Tablet) 5 mg PO TID PRN PRN Reason: agitation Last Admin: 06/30/24 20:47 Dose: 5 mg Olanzapine (Olanzapine 5 Mg Tablet) 5 mg PO BID [facility] Last Admin: 07/04/24 08:38 Dose: 5 mg Trazodone HCl (Trazodone Hcl 50 Mg Tablet) 50 mg PO BEDTIME MRX1 PRN PRN Reason: Insomnia Last Admin: 07/03/24 20:51 Dose: 50 mg Venlafaxine HCl 150 mg/ (Venlafaxine HCl 37.5 mg) 187.5 mg PO DAILY [facility] Last Admin: 07/04/24 08:37 Dose: 187.5 mg Allergies Allergies Allergy/AdvReac Type Severity Reaction Status Date / Time seafood Allergy Itching Verified 06/24/24 23:32 Assessment & Plan Assessment & Plan (1) Severe recurrent major depression w/psychotic features, mood-congruent: Status: Acute Code(s): F33.3 - Major depressive disorder, recurrent, severe with psychotic symptoms Assessment and Plan: 07/03/24 Increase Olanzapine to 5 mg bid from 2.5 mg bid. Plan 07/04/24: Continue current plan. Reason for continued inpatient stay Substantial Risk for: rapid decompensation Time Spent With Patient Time: Total time managing care of this patient today ____ minutes.
[2024-07-04 20:00] VITALS: BP 142/64; PULSE 93; TEMP 36.5; O2SAT 96
[2024-07-04] MEDS: traZODone HCL 50 MG TABLET PO (21:07)
[2024-07-04] MEDS: Melatonin 3 MG TABLET 9 MG PO (21:07)
[2024-07-04 23:50] VITALS: PULSE 74; RESP 16; O2SAT 94
[2024-07-05 08:29] VITALS: BP 133/60; PULSE 71; TEMP 36.4; O2SAT 96
[2024-07-05] MEDS: Nystatin Powder 15 GM BOTTLE 1 APPL TOPICAL ×2 (09:08→21:45)
[2024-07-05] MEDS: Gabapentin 600 MG TABLET 1200 MG PO ×3 (09:09→21:38)
[2024-07-05] MEDS: lamoTRIgine 100 MG TABLET PO ×2 (09:09→21:38)
[2024-07-05] MEDS: Lidocaine 4 % Patch ADH..PATCH 1 PATCH TRANSDERMA (09:09)
[2024-07-05] MEDS: OLANZapine 5 MG TABLET PO ×2 (09:10→21:39)
--- NOTE | 2024-07-05 17:18 | HO.PSYCHPN ---
Subjective Subjective Date of Service: 07/05/24 Reason For Visit: psychosis/SI Subjective Notes: Conditional Voluntary Healthcare Proxy: No Guardianship: No Medical Problems Affecting Mental Status: No Interim History: Continues to discuss discharge and today focused on being alone and not being able to get things done as she feels overwhelmed, needing more help. Discussed help for cleaning, if someone could help me get it under control, I think I can maintain it. Also discussed possible PHP attendance post discharge which she has interest in. But all of this makes me very anxious. Medication Compliance: Yes Side effects from medications: No Attending Groups: Yes Review of Systems Acute medical concerns: No Review of Systems Review of Systems denies Mental Status Exam Mental Status Exam Patient Appearance: Appropriate Patient Orientation: Person, Place, Time and Situation Level of Consciousness: Alert Patient Behavior: Talkative and Good Eye Contact Mood Description: Depressed and Apprehensive Affect Description: Apprehensive Patient Cognition Impaired: No Ability to Follow Directions: Good Speech Pattern: Spontaneous Speech Memory Description: Intact Hallucinations: None Delusions: Not Present Thought Process: Rumination Thought Content: positive for Perseveration Depressive Symptoms: Increased Anxiety Judgement: Good Diagnostics Vital Signs (24Hr): Vital Signs - 24 hr 07/04/24 20:00 07/04/24 23:50 07/05/24 08:29 Temperature 97.7 F 97.6 F Pulse Rate 93 71 Respiratory Rate 16 Blood Pressure 142/64 H 133/60 Pulse Oximetry 96 96 Oxygen Delivery Method Room Air Room Air BMI result Body Mass Index 46.1 Labs 06/24/24 23:47 06/24/24 23:47 Imaging Radiology Impressions: ITS Impressions Lumbar Spine X-Ray 06/29/24 09:00 IMPRESSION: Spondylosis L4-5 and L5-S1 resulting in grade 1 anterolisthesis. No acute fracture. Electronically signed by: Marco Antonio Magdaleno MD 06/29/2024 09:44 AM [facility] Medications Medications Current Medications Acetaminophen (Acetaminophen 325 Mg Tablet) 650 mg PO Q6H PRN PRN Reason: Headache/Pain Mild Scale (1-3) Last Admin: 07/04/24 08:36 Dose: 650 mg Al Hydroxide/Mg Hydroxide (Magnesium Hydrox/Alum Hydrox 30 Ml Oral.Susp) 30 ml PO Q6H PRN PRN Reason: Heartburn/Nausea Last Admin: 07/03/24 21:03 Dose: 30 ml Capsaicin (Capsaicin 0.025% Cream 60 Gm Tube) 1 appl TOPICAL QID PRN; Protocol PRN Reason: knee pain Gabapentin (Gabapentin 600 Mg Tablet) 1,200 mg PO TID [facility] Last Admin: 07/05/24 15:20 Dose: 1,200 mg Hydroxyzine HCl (Hydroxyzine Hcl 25 Mg Tablet) 25 mg PO Q6H PRN PRN Reason: Anxiety Lamotrigine (Lamotrigine 100 Mg Tablet) 100 mg PO BID [facility] Last Admin: 07/05/24 09:09 Dose: 100 mg Lidocaine (Lidocaine 4 % Patch Adh..Patch) 1 patch TRANSDERMA DAILY [facility]; Protocol Last Admin: 07/05/24 09:09 Dose: 1 patch Loratadine (Loratadine 10 Mg Tablet) 10 mg PO DAILY PRN PRN Reason: Allergy Symptoms Magnesium Hydroxide (Milk Of Magnesia 30 Ml Oral.Susp) 30 ml PO DAILY PRN PRN Reason: Constipation Last Admin: 06/27/24 18:34 Dose: 30 ml Melatonin (Melatonin 3 Mg Tablet) 9 mg PO BEDTIME [facility] Last Admin: 07/04/24 21:07 Dose: 9 mg Nicotine (Nicotine 21 Mg Patch.Td24) 21 mg TRANSDERMA DAILY PRN PRN Reason: smoking cessation Nicotine Polacrilex (Nicotine Polacrilex 2 Mg Gum) 4 mg BUCCAL Q2H PRN PRN Reason: Nicotine Cravings Non-Formulary Medication (Albuterol-Budesonide [Airsupra]) 2 inhalation INHALE Q4H PRN PRN Reason: wheezing Last Admin: 07/04/24 08:37 Dose: 2 inhalation Nystatin (Nystatin Powder 15 Gm Bottle) 1 appl TOPICAL BID [facility]; Protocol Last Admin: 07/05/24 09:08 Dose: 1 appl Olanzapine (Olanzapine 5 Mg Tablet) 5 mg PO TID PRN PRN Reason: agitation Last Admin: 06/30/24 20:47 Dose: 5 mg Olanzapine (Olanzapine 5 Mg Tablet) 5 mg PO BID [facility] Last Admin: 07/05/24 09:10 Dose: 5 mg Trazodone HCl (Trazodone Hcl 50 Mg Tablet) 50 mg PO BEDTIME MRX1 PRN PRN Reason: Insomnia Last Admin: 07/04/24 21:07 Dose: 50 mg Venlafaxine HCl 150 mg/ (Venlafaxine HCl 37.5 mg) 187.5 mg PO DAILY [facility] Last Admin: 07/05/24 09:09 Dose: 187.5 mg Allergies Allergies Allergy/AdvReac Type Severity Reaction Status Date / Time seafood Allergy Itching Verified 06/24/24 23:32 Assessment & Plan Assessment & Plan (1) Severe recurrent major depression w/psychotic features, mood-congruent: Status: Acute Code(s): F33.3 - Major depressive disorder, recurrent, severe with psychotic symptoms Assessment and Plan: 07/03/24 Increase Olanzapine to 5 mg bid from 2.5 mg bid. Plan 07/05/24: Continue tx. Reason for continued inpatient stay Substantial Risk for: rapid decompensation Time Spent With Patient Time: Total time managing care of this patient today ____ minutes.
[2024-07-05 20:00] VITALS: BP 138/64; PULSE 76; TEMP 36.4; O2SAT 95
[2024-07-05] MEDS: traZODone HCL 50 MG TABLET PO (21:38)
[2024-07-05] MEDS: Melatonin 3 MG TABLET 9 MG PO (21:39)
[2024-07-06 07:00] VITALS: BMI 48.3
[2024-07-06 08:29] VITALS: BP 124/67; PULSE 61; TEMP 36; O2SAT 96
[2024-07-06] MEDS: Lidocaine 4 % Patch ADH..PATCH 1 PATCH TRANSDERMA (09:14)
[2024-07-06] MEDS: lamoTRIgine 100 MG TABLET PO ×2 (09:15→20:55)
[2024-07-06] MEDS: OLANZapine 5 MG TABLET PO (09:15)
[2024-07-06] MEDS: Gabapentin 600 MG TABLET 1200 MG PO ×3 (09:15→20:55)
[2024-07-06] MEDS: Nystatin Powder 15 GM BOTTLE 1 APPL TOPICAL (09:16)
--- NOTE | 2024-07-06 18:22 | HO.PSYCHPN ---
Subjective Subjective Date of Service: 07/06/24 Reason For Visit: psychosis/SI Subjective Notes: Conditional Voluntary Healthcare Proxy: No Guardianship: No Medical Problems Affecting Mental Status: No Interim History: Discussed medication changes. Pt not satisfied with Olanzapine. Will trial Geodon 20 mg HS. Also, prepared to increase Venlafaxine to 225. Planning DC for next week. Agrees to home health evaluation and PHP screening appt. Medication Compliance: Yes Side effects from medications: Yes (Olanzapine with too much sedative effect) Attending Groups: Yes Review of Systems Acute medical concerns: No Review of Systems Review of Systems denies Mental Status Exam Mental Status Exam Patient Appearance: Appropriate Patient Orientation: Person, Place, Time and Situation Level of Consciousness: Alert Patient Behavior: Talkative and Good Eye Contact Mood Description: Depressed and Apprehensive Affect Description: Apprehensive Patient Cognition Impaired: No Ability to Follow Directions: Good Speech Pattern: Spontaneous Speech Memory Description: Intact Hallucinations: None Delusions: Not Present Thought Process: Rumination Thought Content: positive for Perseveration Depressive Symptoms: Increased Anxiety Judgement: Good Diagnostics Vital Signs (24Hr): Vital Signs - 24 hr 07/05/24 20:00 07/06/24 08:29 Temperature 97.6 F 96.8 F Pulse Rate 76 61 Blood Pressure 138/64 124/67 Pulse Oximetry 95 96 Oxygen Delivery Method Room Air Room Air BMI result Body Mass Index 48.3 Labs 06/24/24 23:47 06/24/24 23:47 Imaging Radiology Impressions: ITS Impressions Lumbar Spine X-Ray 06/29/24 09:00 IMPRESSION: Spondylosis L4-5 and L5-S1 resulting in grade 1 anterolisthesis. No acute fracture. Electronically signed by: Marco Antonio Magdaleno MD 06/29/2024 09:44 AM [facility] Medications Medications Current Medications Acetaminophen (Acetaminophen 325 Mg Tablet) 650 mg PO Q6H PRN PRN Reason: Headache/Pain Mild Scale (1-3) Last Admin: 07/04/24 08:36 Dose: 650 mg Al Hydroxide/Mg Hydroxide (Magnesium Hydrox/Alum Hydrox 30 Ml Oral.Susp) 30 ml PO Q6H PRN PRN Reason: Heartburn/Nausea Last Admin: 07/03/24 21:03 Dose: 30 ml Capsaicin (Capsaicin 0.025% Cream 60 Gm Tube) 1 appl TOPICAL QID PRN; Protocol PRN Reason: knee pain Gabapentin (Gabapentin 600 Mg Tablet) 1,200 mg PO TID [facility] Last Admin: 07/06/24 16:34 Dose: 1,200 mg Hydroxyzine HCl (Hydroxyzine Hcl 25 Mg Tablet) 25 mg PO Q6H PRN PRN Reason: Anxiety Lamotrigine (Lamotrigine 100 Mg Tablet) 100 mg PO BID [facility] Last Admin: 07/06/24 09:15 Dose: 100 mg Lidocaine (Lidocaine 4 % Patch Adh..Patch) 1 patch TRANSDERMA DAILY [facility]; Protocol Last Admin: 07/06/24 09:14 Dose: 1 patch Loratadine (Loratadine 10 Mg Tablet) 10 mg PO DAILY PRN PRN Reason: Allergy Symptoms Magnesium Hydroxide (Milk Of Magnesia 30 Ml Oral.Susp) 30 ml PO DAILY PRN PRN Reason: Constipation Last Admin: 06/27/24 18:34 Dose: 30 ml Melatonin (Melatonin 3 Mg Tablet) 9 mg PO BEDTIME [facility] Last Admin: 07/05/24 21:39 Dose: 9 mg Nicotine (Nicotine 21 Mg Patch.Td24) 21 mg TRANSDERMA DAILY PRN PRN Reason: smoking cessation Nicotine Polacrilex (Nicotine Polacrilex 2 Mg Gum) 4 mg BUCCAL Q2H PRN PRN Reason: Nicotine Cravings Non-Formulary Medication (Albuterol-Budesonide [Airsupra]) 2 inhalation INHALE Q4H PRN PRN Reason: wheezing Last Admin: 07/04/24 08:37 Dose: 2 inhalation Nystatin (Nystatin Powder 15 Gm Bottle) 1 appl TOPICAL BID [facility]; Protocol Last Admin: 07/06/24 09:16 Dose: 1 appl Olanzapine (Olanzapine 2.5 Mg Tablet) 2.5 mg PO DAILY [facility] Trazodone HCl (Trazodone Hcl 50 Mg Tablet) 50 mg PO BEDTIME MRX1 PRN PRN Reason: Insomnia Last Admin: 07/05/24 21:38 Dose: 50 mg Venlafaxine HCl (Venlafaxine Hcl Er 75 Mg Cap.Er.24h) 225 mg PO DAILY [facility] Ziprasidone (Ziprasidone 20 Mg Capsule) 20 mg PO BEDTIME [facility] Allergies Allergies Allergy/AdvReac Type Severity Reaction Status Date / Time seafood Allergy Itching Verified 06/24/24 23:32 Assessment & Plan Assessment & Plan (1) Severe recurrent major depression w/psychotic features, mood-congruent: Status: Acute Code(s): F33.3 - Major depressive disorder, recurrent, severe with psychotic symptoms Assessment and Plan: 07/03/24 Increase Olanzapine to 5 mg bid from 2.5 mg bid. 07/06: DC Olanzapine at HS. Continue Olanzapine 2.5 mg a.m. for one more dose Geodon 20 mg HS Increase Effexor to 225 mg daily Reason for continued inpatient stay Substantial Risk for: rapid decompensation Time Spent With Patient Time: Total time managing care of this patient today ____ minutes.
[2024-07-06 20:00] VITALS: BP 126/76; PULSE 73; RESP 16; TEMP 36.5; O2SAT 96
[2024-07-06] MEDS: Melatonin 3 MG TABLET 9 MG PO (20:55)
[2024-07-06] MEDS: Ziprasidone 20 MG CAPSULE PO (20:55)
[2024-07-06] MEDS: traZODone HCL 50 MG TABLET PO (20:55)
[2024-07-07 08:00] VITALS: BP 134/59; PULSE 57; TEMP 36.6; O2SAT 98
[2024-07-07] MEDS: Lidocaine 4 % Patch ADH..PATCH 1 PATCH TRANSDERMA (08:58)
[2024-07-07] MEDS: Venlafaxine HCl ER 75 MG CAP.ER.24H 225 MG PO (08:59)
[2024-07-07] MEDS: Gabapentin 600 MG TABLET 1200 MG PO ×3 (08:59→20:10)
[2024-07-07] MEDS: lamoTRIgine 100 MG TABLET PO ×2 (08:59→20:10)
[2024-07-07] MEDS: OLANZapine 2.5 MG TABLET PO (08:59)
[2024-07-07] MEDS: Nystatin Powder 15 GM BOTTLE 1 APPL TOPICAL (09:17)
--- NOTE | 2024-07-07 10:01 | P.PNPSI_ITS ---
Subjective Subjective Date of Service: 07/07/24 Reason For Visit: psychosis/SI Subjective Notes: Conditional Voluntary Healthcare Proxy: No Guardianship: No Medical Problems Affecting Mental Status: No Interim History: I am going to discharge on Wednesday or . [place], my nurse will come Wednesday, I will come to [facility] here. I will have another community engagement specialist or CSP. I slept well and I feel nervous, but excited. My son and daughter will come next week too. Reports CPAP use for entire night with good results Tolerating med changes thus far Medication Compliance: Yes Side effects from medications: No Attending Groups: Yes Review of Systems Acute medical concerns: No Medical Review of Systems: unchanged Review of Systems Review of Systems denies Mental Status Exam Mental Status Exam Patient Appearance: Appropriate Patient Orientation: Person, Place, Time and Situation Level of Consciousness: Alert Patient Behavior: Talkative and Good Eye Contact Mood Description: Anxious and Apprehensive Affect Description: Anxious and Apprehensive Patient Cognition Impaired: No Ability to Follow Directions: Good Speech Pattern: Spontaneous Speech Memory Description: Intact Hallucinations: None Delusions: Not Present Thought Process: Rumination Thought Content: positive for Perseveration Depressive Symptoms: Increased Anxiety Judgement: Good Diagnostics Vital Signs (24Hr): Vital Signs - 24 hr 07/06/24 20:00 07/07/24 08:00 Temperature 97.7 F 97.8 F Pulse Rate 73 57 Respiratory Rate 16 Blood Pressure 126/76 134/59 L Pulse Oximetry 96 98 Oxygen Delivery Method Room Air Room Air BMI result Body Mass Index 48.3 Labs 06/24/24 23:47 06/24/24 23:47 Imaging Radiology Impressions: ITS Impressions Lumbar Spine X-Ray 06/29/24 09:00 IMPRESSION: Spondylosis L4-5 and L5-S1 resulting in grade 1 anterolisthesis. No acute fracture. Electronically signed by: Marco Antonio Magdaleno MD 06/29/2024 09:44 [place] [facility] [place] Medications Current Medications Acetaminophen (Acetaminophen 325 Mg Tablet) 650 mg PO Q6H PRN PRN Reason: Headache/Pain Mild Scale (1-3) Last Admin: 07/04/24 08:36 Dose: 650 mg Al Hydroxide/Mg Hydroxide (Magnesium Hydrox/Alum Hydrox 30 Ml Oral.Susp) 30 ml PO Q6H PRN PRN Reason: Heartburn/Nausea Last Admin: 07/03/24 21:03 Dose: 30 ml Capsaicin (Capsaicin 0.025% Cream 60 Gm Tube) 1 appl TOPICAL QID PRN; Protocol PRN Reason: knee pain Gabapentin (Gabapentin 600 Mg Tablet) 1,200 mg PO TID [facility] Last Admin: 07/07/24 08:59 Dose: 1,200 mg Hydroxyzine HCl (Hydroxyzine Hcl 25 Mg Tablet) 25 mg PO Q6H PRN PRN Reason: Anxiety Lamotrigine (Lamotrigine 100 Mg Tablet) 100 mg PO BID [facility] Last Admin: 07/07/24 08:59 Dose: 100 mg Lidocaine (Lidocaine 4 % Patch Adh..Patch) 1 patch TRANSDERMA DAILY [facility]; Protocol Last Admin: 07/07/24 08:58 Dose: 1 patch Loratadine (Loratadine 10 Mg Tablet) 10 mg PO DAILY PRN PRN Reason: Allergy Symptoms Magnesium Hydroxide (Milk Of Magnesia 30 Ml Oral.Susp) 30 ml PO DAILY PRN PRN Reason: Constipation Last Admin: 06/27/24 18:34 Dose: 30 ml Melatonin (Melatonin 3 Mg Tablet) 9 mg PO BEDTIME [facility] Last Admin: 07/06/24 20:55 Dose: 9 mg Nicotine (Nicotine 21 Mg Patch.Td24) 21 mg TRANSDERMA DAILY PRN PRN Reason: smoking cessation Nicotine Polacrilex (Nicotine Polacrilex 2 Mg Gum) 4 mg BUCCAL Q2H PRN PRN Reason: Nicotine Cravings Non-Formulary Medication (Albuterol-Budesonide [Airsupra]) 2 inhalation INHALE Q4H PRN PRN Reason: wheezing Last Admin: 07/07/24 06:11 Dose: 2 inhalation Nystatin (Nystatin Powder 15 Gm Bottle) 1 appl TOPICAL BID [facility]; Protocol Last Admin: 07/07/24 09:17 Dose: 1 appl Olanzapine (Olanzapine 2.5 Mg Tablet) 2.5 mg PO DAILY [facility] Last Admin: 07/07/24 08:59 Dose: 2.5 mg Trazodone HCl (Trazodone Hcl 50 Mg Tablet) 50 mg PO BEDTIME MRX1 PRN PRN Reason: Insomnia Last Admin: 07/06/24 20:55 Dose: 50 mg Venlafaxine HCl (Venlafaxine Hcl Er 75 Mg Cap.Er.24h) 225 mg PO DAILY [facility] Last Admin: 07/07/24 08:59 Dose: 225 mg Ziprasidone (Ziprasidone 20 Mg Capsule) 20 mg PO BEDTIME [facility] Last Admin: 07/06/24 20:55 Dose: 20 mg Allergies Allergies Allergy/AdvReac Type Severity Reaction Status Date / Time seafood Allergy Itching Verified 06/24/24 23:32 Assessment & Plan Assessment & Plan (1) Severe recurrent major depression w/psychotic features, mood-congruent: Status: Acute Code(s): F33.3 - Major depressive disorder, recurrent, severe with psychotic symptoms Assessment and Plan: 07/03/24 Increase Olanzapine to 5 mg bid from 2.5 mg bid. Plan 07/07/24 continue current plan/regime. Reason for continued inpatient stay Substantial Risk for: rapid decompensation Time Spent With Patient Time: Total time managing care of this patient today ____ minutes.
[2024-07-07] MEDS: hydrOXYzine HCL 25 MG TABLET PO (10:57)
[2024-07-07] MEDS: Magnesium Hydrox/Alum Hydrox 30 ML ORAL.SUSP PO (15:48)
[2024-07-07 20:00] VITALS: BP 119/59; PULSE 74; RESP 15; TEMP 36.2; O2SAT 96
[2024-07-07] MEDS: Melatonin 3 MG TABLET 9 MG PO (20:09)
[2024-07-07] MEDS: Ziprasidone 20 MG CAPSULE PO (20:09)
[2024-07-07] MEDS: traZODone HCL 50 MG TABLET PO (20:10)
[2024-07-07] MEDS: Simethicone 80 MG TAB.CHEW PO (20:19)
[2024-07-07 23:15] VITALS: PULSE 77; RESP 15; O2SAT 93
[2024-07-08 07:46] VITALS: BP 123/65; PULSE 75; TEMP 36.8; O2SAT 96
[2024-07-08] MEDS: Lidocaine 4 % Patch ADH..PATCH 1 PATCH TRANSDERMA (08:27)
[2024-07-08] MEDS: lamoTRIgine 100 MG TABLET PO ×2 (08:27→21:00)
[2024-07-08] MEDS: Venlafaxine HCl ER 75 MG CAP.ER.24H 225 MG PO (08:27)
[2024-07-08] MEDS: Gabapentin 600 MG TABLET 1200 MG PO ×3 (08:27→21:00)
[2024-07-08] MEDS: Nystatin Powder 15 GM BOTTLE 1 APPL TOPICAL (08:33)
--- NOTE | 2024-07-08 11:42 | P.PNPSI_ITS ---
Subjective Subjective Date of Service: 07/08/24 Reason For Visit: psychosis/SI Subjective Notes: Conditional Voluntary Interim History: Patient was seen and discussed in rounds today. Records and plans were reviewed. She states that she is doing well with the change of Zyprexa to Geodon with no major side effects. She is feeling ?better today?. Eating and sleeping adequately. No SI. She is reported to be somewhat guarded but that did not appear to be with me today. She has been visible and calm. No changes were made today Review of Systems Review of Systems Yes all other systems are reviewed and are negative Mental Status Exam Mental Status Exam Patient Appearance: Appropriate Patient Orientation: Person, Place, Time and Situation Level of Consciousness: Alert Patient Behavior: Talkative and Good Eye Contact Mood Description: Anxious and Apprehensive Affect Description: Anxious and Apprehensive Patient Cognition Impaired: No Ability to Follow Directions: Good Speech Pattern: Spontaneous Speech Memory Description: Intact Hallucinations: None Delusions: Not Present Thought Process: Rumination Thought Content: positive for Perseveration Depressive Symptoms: Increased Anxiety Judgement: Good Diagnostics Vital Signs (24Hr): Vital Signs - 24 hr 07/07/24 20:00 07/07/24 23:15 07/08/24 07:46 Temperature 97.1 F 98.2 F Pulse Rate 74 75 Respiratory Rate 15 15 Blood Pressure 119/59 L 123/65 Pulse Oximetry 96 96 Oxygen Delivery Method Room Air BMI result Body Mass Index 48.3 Labs 06/24/24 23:47 06/24/24 23:47 Imaging Radiology Impressions: ITS Impressions Lumbar Spine X-Ray 06/29/24 09:00 IMPRESSION: Spondylosis L4-5 and L5-S1 resulting in grade 1 anterolisthesis. No acute fracture. Electronically signed by: Marco Antonio Magdaleno MD 06/29/2024 09:44 AM [facility] Medications Medications Current Medications Acetaminophen (Acetaminophen 325 Mg Tablet) 650 mg PO Q6H PRN PRN Reason: Headache/Pain Mild Scale (1-3) Last Admin: 07/04/24 08:36 Dose: 650 mg Al Hydroxide/Mg Hydroxide (Magnesium Hydrox/Alum Hydrox 30 Ml Oral.Susp) 30 ml PO Q6H PRN PRN Reason: Heartburn/Nausea Last Admin: 07/07/24 15:48 Dose: 30 ml Capsaicin (Capsaicin 0.025% Cream 60 Gm Tube) 1 appl TOPICAL QID PRN; Protocol PRN Reason: knee pain Gabapentin (Gabapentin 600 Mg Tablet) 1,200 mg PO TID [facility] Last Admin: 07/08/24 08:27 Dose: 1,200 mg Hydroxyzine HCl (Hydroxyzine Hcl 25 Mg Tablet) 25 mg PO Q6H PRN PRN Reason: Anxiety Last Admin: 07/07/24 10:57 Dose: 25 mg Lamotrigine (Lamotrigine 100 Mg Tablet) 100 mg PO BID [facility] Last Admin: 07/08/24 08:27 Dose: 100 mg Lidocaine (Lidocaine 4 % Patch Adh..Patch) 1 patch TRANSDERMA DAILY [facility]; Protocol Last Admin: 07/08/24 08:27 Dose: 1 patch Loratadine (Loratadine 10 Mg Tablet) 10 mg PO DAILY PRN PRN Reason: Allergy Symptoms Magnesium Hydroxide (Milk Of Magnesia 30 Ml Oral.Susp) 30 ml PO DAILY PRN PRN Reason: Constipation Last Admin: 06/27/24 18:34 Dose: 30 ml Melatonin (Melatonin 3 Mg Tablet) 9 mg PO BEDTIME [facility] Last Admin: 07/07/24 20:09 Dose: 9 mg Nicotine (Nicotine 21 Mg Patch.Td24) 21 mg TRANSDERMA DAILY PRN PRN Reason: smoking cessation Nicotine Polacrilex (Nicotine Polacrilex 2 Mg Gum) 4 mg BUCCAL Q2H PRN PRN Reason: Nicotine Cravings Non-Formulary Medication (Albuterol-Budesonide [Airsupra]) 2 inhalation INHALE Q4H PRN PRN Reason: wheezing Last Admin: 07/08/24 04:30 Dose: 2 inhalation Nystatin (Nystatin Powder 15 Gm Bottle) 1 appl TOPICAL BID [facility]; Protocol Last Admin: 07/08/24 08:33 Dose: 1 appl Simethicone (Simethicone 80 Mg Tab.Chew) 80 mg PO QIDWMHS PRN PRN Reason: Gas Last Admin: 07/07/24 20:19 Dose: 80 mg Trazodone HCl (Trazodone Hcl 50 Mg Tablet) 50 mg PO BEDTIME MRX1 PRN PRN Reason: Insomnia Last Admin: 07/07/24 20:10 Dose: 50 mg Venlafaxine HCl (Venlafaxine Hcl Er 75 Mg Cap.Er.24h) 225 mg PO DAILY [facility] Last Admin: 07/08/24 08:27 Dose: 225 mg Ziprasidone (Ziprasidone 20 Mg Capsule) 20 mg PO BEDTIME [facility] Last Admin: 07/07/24 20:09 Dose: 20 mg Allergies Allergies Allergy/AdvReac Type Severity Reaction Status Date / Time seafood Allergy Itching Verified 06/24/24 23:32 Assessment & Plan Assessment & Plan (1) Severe recurrent major depression w/psychotic features, mood-congruent: Status: Acute Code(s): F33.3 - Major depressive disorder, recurrent, severe with psychotic symptoms Assessment and Plan: 07/03/24 Increase Olanzapine to 5 mg bid from 2.5 mg bid. Plan 07/07/24 continue current plan/regime. 07/08/2024: Continue current regimen and plans Reason for continued inpatient stay Substantial Risk for: med/psych decompensation Time Spent With Patient Time: Total time managing care of this patient today ____ minutes.
[2024-07-08] MEDS: Throat Lozenge, Medicated LOZENGE 1 LOZENGE MUCOUS MEM ×2 (13:03→14:41)
[2024-07-08 20:00] VITALS: BP 131/65; PULSE 72; RESP 15; TEMP 36.6; O2SAT 99
[2024-07-08] MEDS: Ziprasidone 20 MG CAPSULE PO (21:00)
[2024-07-08] MEDS: Melatonin 3 MG TABLET 9 MG PO (21:00)
[2024-07-08] MEDS: traZODone HCL 50 MG TABLET PO (21:00)
[2024-07-08 23:36] VITALS: PULSE 71; RESP 20; O2SAT 95
[2024-07-09 08:22] VITALS: BP 150/71; PULSE 67; RESP 16; TEMP 37; O2SAT 97
[2024-07-09 08:46] VITALS: BP 130/67; PULSE 71
[2024-07-09] MEDS: Venlafaxine HCl ER 75 MG CAP.ER.24H 225 MG PO (09:23)
[2024-07-09] MEDS: Nystatin Powder 15 GM BOTTLE 1 APPL TOPICAL ×2 (09:24→21:21)
[2024-07-09] MEDS: Lidocaine 4 % Patch ADH..PATCH 1 PATCH TRANSDERMA (09:26)
[2024-07-09] MEDS: lamoTRIgine 100 MG TABLET PO ×2 (09:28→21:23)
[2024-07-09] MEDS: Gabapentin 600 MG TABLET 1200 MG PO ×3 (09:28→21:23)
--- NOTE | 2024-07-09 10:19 | P.PNPSI_ITS ---
Subjective Subjective Date of Service: 07/09/24 Reason For Visit: psychosis/SI Subjective Notes: Conditional Voluntary Interim History: Patient was seen and discussed in rounds today. Records and plans were reviewed. She has been doing well and feels that the current medications are very helpful to her. She denies any side effects. She has visible, social and feels that her thinking is clearer. Eating and sleeping well. No SI. No changes were made today Review of Systems Review of Systems Yes all other systems are reviewed and are negative Mental Status Exam Mental Status Exam Patient Appearance: Appropriate Patient Orientation: Person, Place, Time and Situation Level of Consciousness: Alert Patient Behavior: Talkative and Good Eye Contact Mood Description: Anxious and Apprehensive Affect Description: Anxious and Apprehensive Patient Cognition Impaired: No Ability to Follow Directions: Good Speech Pattern: Spontaneous Speech Memory Description: Intact Hallucinations: None Delusions: Not Present Thought Process: Rumination Thought Content: positive for Perseveration Depressive Symptoms: Increased Anxiety Judgement: Good Diagnostics Vital Signs (24Hr): Vital Signs - 24 hr 07/08/24 20:00 07/08/24 23:36 07/09/24 08:22 Temperature 98 F 98.6 F Pulse Rate 72 67 Respiratory Rate 15 20 16 Blood Pressure 131/65 150/71 H Pulse Oximetry 99 97 Oxygen Delivery Method Room Air 07/09/24 08:46 Temperature Pulse Rate 71 Respiratory Rate Blood Pressure 130/67 Pulse Oximetry Oxygen Delivery Method BMI result Body Mass Index 48.3 Labs 06/24/24 23:47 06/24/24 23:47 Imaging Radiology Impressions: ITS Impressions Lumbar Spine X-Ray 06/29/24 09:00 IMPRESSION: Spondylosis L4-5 and L5-S1 resulting in grade 1 anterolisthesis. No acute fracture. Electronically signed by: Marco Antonio Magdaleno MD 06/29/2024 09:44 AM [facility] [place] Medications Medications Current Medications Acetaminophen (Acetaminophen 325 Mg Tablet) 650 mg PO Q6H PRN PRN Reason: Headache/Pain Mild Scale (1-3) Last Admin: 07/04/24 08:36 Dose: 650 mg Al Hydroxide/Mg Hydroxide (Magnesium Hydrox/Alum Hydrox 30 Ml Oral.Susp) 30 ml PO Q6H PRN PRN Reason: Heartburn/Nausea Last Admin: 07/07/24 15:48 Dose: 30 ml Benzocaine (Throat Lozenge, Medicated Lozenge) 1 lozenge MUCOUS MEM Q2H PRN PRN Reason: Sore Throat Last Admin: 07/08/24 14:41 Dose: 1 lozenge Capsaicin (Capsaicin 0.025% Cream 60 Gm Tube) 1 appl TOPICAL QID PRN; Protocol PRN Reason: knee pain Gabapentin (Gabapentin 600 Mg Tablet) 1,200 mg PO TID [facility] Last Admin: 07/09/24 09:28 Dose: 1,200 mg Hydroxyzine HCl (Hydroxyzine Hcl 25 Mg Tablet) 25 mg PO Q6H PRN PRN Reason: Anxiety Last Admin: 07/07/24 10:57 Dose: 25 mg Lamotrigine (Lamotrigine 100 Mg Tablet) 100 mg PO BID [facility] Last Admin: 07/09/24 09:28 Dose: 100 mg Lidocaine (Lidocaine 4 % Patch Adh..Patch) 1 patch TRANSDERMA DAILY [facility]; Protocol Last Admin: 07/09/24 09:26 Dose: 1 patch Loratadine (Loratadine 10 Mg Tablet) 10 mg PO DAILY PRN PRN Reason: Allergy Symptoms Magnesium Hydroxide (Milk Of Magnesia 30 Ml Oral.Susp) 30 ml PO DAILY PRN PRN Reason: Constipation Last Admin: 06/27/24 18:34 Dose: 30 ml Melatonin (Melatonin 3 Mg Tablet) 9 mg PO BEDTIME [facility] Last Admin: 07/08/24 21:00 Dose: 9 mg Non-Formulary Medication (Albuterol-Budesonide [Airsupra]) 2 inhalation INHALE Q4H PRN PRN Reason: wheezing Last Admin: 07/08/24 21:15 Dose: 2 inhalation Nystatin (Nystatin Powder 15 Gm Bottle) 1 appl TOPICAL BID [facility]; Protocol Last Admin: 07/09/24 09:24 Dose: 1 appl Simethicone (Simethicone 80 Mg Tab.Chew) 80 mg PO QIDWMHS PRN PRN Reason: Gas Last Admin: 07/07/24 20:19 Dose: 80 mg Trazodone HCl (Trazodone Hcl 50 Mg Tablet) 50 mg PO BEDTIME MRX1 PRN PRN Reason: Insomnia Last Admin: 07/08/24 21:00 Dose: 50 mg Venlafaxine HCl (Venlafaxine Hcl Er 75 Mg Cap.Er.24h) 225 mg PO DAILY [facility] Last Admin: 07/09/24 09:23 Dose: 225 mg Ziprasidone (Ziprasidone 20 Mg Capsule) 20 mg PO BEDTIME [facility] Last Admin: 07/08/24 21:00 Dose: 20 mg Allergies Allergies Allergy/AdvReac Type Severity Reaction Status Date / Time seafood Allergy Itching Verified 06/24/24 23:32 Assessment & Plan Assessment & Plan (1) Severe recurrent major depression w/psychotic features, mood-congruent: Status: Acute Code(s): F33.3 - Major depressive disorder, recurrent, severe with psychotic symptoms Assessment and Plan: 07/03/24 Increase Olanzapine to 5 mg bid from 2.5 mg bid. Plan 07/07/24 continue current plan/regime. 07/08/2024: Continue current regimen and plans 07/09/2024: Continue current regimen and plans Reason for continued inpatient stay Substantial Risk for: med/psych decompensation Time Spent With Patient Time: Total time managing care of this patient today ____ minutes.
[2024-07-09] MEDS: Acetaminophen 325 MG TABLET 650 MG PO (18:20)
[2024-07-09] MEDS: hydrOXYzine HCL 25 MG TABLET PO (18:21)
[2024-07-09 19:51] VITALS: BP 139/71; PULSE 68; RESP 15; TEMP 36; O2SAT 98
[2024-07-09] MEDS: Ziprasidone 20 MG CAPSULE PO (21:22)
[2024-07-09] MEDS: Melatonin 3 MG TABLET 9 MG PO (21:23)
[2024-07-09] MEDS: traZODone HCL 50 MG TABLET PO (21:23)
[2024-07-09 22:17] VITALS: PULSE 96; RESP 15; O2SAT 96
[2024-07-10 03:50] VITALS: PULSE 82; RESP 18; O2SAT 97
[2024-07-10 08:13] VITALS: BP 169/74; PULSE 75; RESP 16; TEMP 36; O2SAT 96
[2024-07-10 08:23] VITALS: BP 143/85; PULSE 65
[2024-07-10] MEDS: Venlafaxine HCl ER 75 MG CAP.ER.24H 225 MG PO (09:03)
[2024-07-10] MEDS: lamoTRIgine 100 MG TABLET PO ×2 (09:03→22:31)
[2024-07-10] MEDS: Gabapentin 600 MG TABLET 1200 MG PO ×3 (09:03→22:28)
[2024-07-10] MEDS: Nystatin Powder 15 GM BOTTLE 1 APPL TOPICAL ×2 (09:03→21:14)
--- NOTE | 2024-07-10 13:13 | HO.PSYCHPN ---
Subjective Subjective Date of Service: 07/10/24 Reason For Visit: psychosis/SI Subjective Notes: Conditional Voluntary Healthcare Proxy: No Guardianship: No Medical Problems Affecting Mental Status: No Interim History: I heard music over the weekend, a song a woman's got to have (repetitive).Anxious, symptomatic regarding discharge which is planned for 07/13/24.. I cannot leave, I am not ready. Stephanie PATRICIA. Risperdal 1 mg bid initiated. Pt talked of her anxiety about leaving, along with concerns about finances, living alone and returning to her classes. Medication Compliance: Yes Side effects from medications: No Attending Groups: Yes Review of Systems Acute medical concerns: No Medical Review of Systems: unchanged Review of Systems Review of Systems denies Mental Status Exam Mental Status Exam Patient Appearance: Fatigued and Appropriate Patient Orientation: Person, Place, Time and Situation Level of Consciousness: Alert Patient Behavior: Talkative, Cooperative, Anxious, Distractible and Good Eye Contact Mood Description: Depressed and Anxious Affect Description: Flat Patient Cognition Impaired: No Ability to Follow Directions: Good Speech Pattern: Spontaneous Speech Memory Description: Intact Hallucinations: Auditory (singing) Delusions: Not Present Perceptual Disturbances: Depersonalization and Derealization Thought Process: Rumination Thought Content: positive for Perseveration Depressive Symptoms: Increased Anxiety Judgement: Fair Diagnostics Vital Signs (24Hr): Vital Signs - 24 hr 07/09/24 19:51 07/09/24 22:17 07/10/24 03:50 Temperature 96.8 F Pulse Rate 68 Respiratory Rate 15 15 18 Blood Pressure 139/71 Pulse Oximetry 98 Oxygen Delivery Method 07/10/24 08:13 07/10/24 08:23 Temperature 96.8 F Pulse Rate 75 65 Respiratory Rate 16 Blood Pressure 169/74 H 143/85 H Pulse Oximetry 96 Oxygen Delivery Method Room Air BMI result Body Mass Index 48.3 Labs 06/24/24 23:47 06/24/24 23:47 Imaging Radiology Impressions: ITS Impressions Lumbar Spine X-Ray 06/29/24 09:00 IMPRESSION: Spondylosis L4-5 and L5-S1 resulting in grade 1 anterolisthesis. No acute fracture. Electronically signed by: Marco Antonio Magdaleno MD 06/29/2024 09:44 AM [facility] [place] [place] Medications Medications Current Medications Acetaminophen (Acetaminophen 325 Mg Tablet) 650 mg PO Q6H PRN PRN Reason: Headache/Pain Mild Scale (1-3) Last Admin: 07/09/24 18:20 Dose: 650 mg Al Hydroxide/Mg Hydroxide (Magnesium Hydrox/Alum Hydrox 30 Ml Oral.Susp) 30 ml PO Q6H PRN PRN Reason: Heartburn/Nausea Last Admin: 07/07/24 15:48 Dose: 30 ml Benzocaine (Throat Lozenge, Medicated Lozenge) 1 lozenge MUCOUS MEM Q2H PRN PRN Reason: Sore Throat Last Admin: 07/08/24 14:41 Dose: 1 lozenge Capsaicin (Capsaicin 0.025% Cream 60 Gm Tube) 1 appl TOPICAL QID PRN; Protocol PRN Reason: knee pain Gabapentin (Gabapentin 600 Mg Tablet) 1,200 mg PO TID [facility] Last Admin: 07/10/24 09:03 Dose: 1,200 mg Hydroxyzine HCl (Hydroxyzine Hcl 25 Mg Tablet) 25 mg PO Q6H PRN PRN Reason: Anxiety Last Admin: 07/09/24 18:21 Dose: 25 mg Lamotrigine (Lamotrigine 100 Mg Tablet) 100 mg PO BID [facility] Last Admin: 07/10/24 09:03 Dose: 100 mg Lidocaine (Lidocaine 4 % Patch Adh..Patch) 1 patch TRANSDERMA DAILY [facility]; Protocol Last Admin: 07/10/24 09:04 Dose: Not Given Loratadine (Loratadine 10 Mg Tablet) 10 mg PO DAILY PRN PRN Reason: Allergy Symptoms Magnesium Hydroxide (Milk Of Magnesia 30 Ml Oral.Susp) 30 ml PO DAILY PRN PRN Reason: Constipation Last Admin: 06/27/24 18:34 Dose: 30 ml Melatonin (Melatonin 3 Mg Tablet) 9 mg PO BEDTIME [facility] Last Admin: 07/09/24 21:23 Dose: 9 mg Non-Formulary Medication (Albuterol-Budesonide [Airsupra]) 2 inhalation INHALE Q4H PRN PRN Reason: wheezing Last Admin: 07/10/24 09:03 Dose: 2 inhalation Nystatin (Nystatin Powder 15 Gm Bottle) 1 appl TOPICAL BID [facility]; Protocol Last Admin: 07/10/24 09:03 Dose: 1 appl Risperidone (Risperidone 1 Mg Tablet) 1 mg PO BID [facility] Simethicone (Simethicone 80 Mg Tab.Chew) 80 mg PO QIDWMHS PRN PRN Reason: Gas Last Admin: 07/07/24 20:19 Dose: 80 mg Trazodone HCl (Trazodone Hcl 50 Mg Tablet) 50 mg PO BEDTIME MRX1 PRN PRN Reason: Insomnia Last Admin: 07/09/24 21:23 Dose: 50 mg Venlafaxine HCl (Venlafaxine Hcl Er 75 Mg Cap.Er.24h) 225 mg PO DAILY [facility] Last Admin: 07/10/24 09:03 Dose: 225 mg Allergies Allergies Allergy/AdvReac Type Severity Reaction Status Date / Time seafood Allergy Itching Verified 06/24/24 23:32 Assessment & Plan Assessment & Plan (1) Severe recurrent major depression w/psychotic features, mood-congruent: Status: Acute Code(s): F33.3 - Major depressive disorder, recurrent, severe with psychotic symptoms Assessment and Plan: 07/03/24 Increase Olanzapine to 5 mg bid from 2.5 mg bid. Plan 07/07/24 continue current plan/regime. 07/08/2024: Continue current regimen and plans 07/09/2024: Continue current regimen and plans 07/10/24: BELEM Brown Risperdal 1 mg bid Reason for continued inpatient stay Substantial Risk for: rapid decompensation Time Spent With Patient Time: Total time managing care of this patient today ____ minutes.
[2024-07-10] MEDS: Lidocaine 4 % Patch ADH..PATCH 1 PATCH TRANSDERMA (16:16)
[2024-07-10] MEDS: risperiDONE 1 MG TABLET PO ×2 (19:01→22:31)
[2024-07-10 20:00] VITALS: BP 124/74; PULSE 71; TEMP 36; O2SAT 98
[2024-07-10] MEDS: Magnesium Hydrox/Alum Hydrox 30 ML ORAL.SUSP PO (21:09)
[2024-07-10] MEDS: Melatonin 3 MG TABLET 9 MG PO (22:30)
[2024-07-10] MEDS: Throat Lozenge, Medicated LOZENGE 1 LOZENGE MUCOUS MEM (22:32)
[2024-07-11 07:56] VITALS: BP 174/87; PULSE 76; RESP 17; TEMP 36.4; O2SAT 95
[2024-07-11] MEDS: Venlafaxine HCl ER 75 MG CAP.ER.24H 225 MG PO (08:00)
[2024-07-11] MEDS: risperiDONE 1 MG TABLET PO ×2 (08:01→21:04)
[2024-07-11] MEDS: lamoTRIgine 100 MG TABLET PO ×2 (08:01→21:04)
[2024-07-11] MEDS: Gabapentin 600 MG TABLET 1200 MG PO ×3 (08:01→21:04)
[2024-07-11] MEDS: Lidocaine 4 % Patch ADH..PATCH 1 PATCH TRANSDERMA (08:02)
[2024-07-11] MEDS: Nystatin Powder 15 GM BOTTLE 1 APPL TOPICAL ×2 (08:13→21:19)
[2024-07-11 09:15] VITALS: BP 124/77; PULSE 70
[2024-07-11] MEDS: Acetaminophen 325 MG TABLET 650 MG PO (10:22)
--- NOTE | 2024-07-11 10:27 | HO.PSYCHPN ---
Subjective Subjective Date of Service: 07/11/24 Reason For Visit: psychosis/SI Subjective Notes: Conditional Voluntary Interim History: Pt reports some difficulty sleeping. Per nursing, pt slept most of the night but did wake up twice at night. She denies SI/HI. She reports today she is hearing different song intermittently during the day. She reports she does not feel ready for discharged but seems to be related to feeling more comfortable here, as no safety concerns are raised. She is taking medications as prescribed. She reports starting to see shadows when daughter left the house. She reports fear of abandonment, trigger of children leaving. Medication Compliance: Yes Side effects from medications: No Review of Systems Review of Systems denies Yes all other systems are reviewed and are negative Mental Status Exam Mental Status Exam Narrative: Pt is alert and oriented; behavior is cooperative, friendly and calm; patient is not in distress; dressed in hospital attire with unkempt hair but adequate hygiene; mood is described as depressed but a little better and affect congruent, a little brighter; eye contact appropriate; Speech is normal rate, volume and prosody and not pressured; still some psychomotor retardation present; thought process is organized and goal directed; Thought content is on tx, dealing with depression; otherwise pertinent to relevant topics and without any delusional content, paranoid ideations or grandiosity; intermittent SI but currently none; no HI; no AVH. Patients insight and judgment impaired Diagnostics Vital Signs (24Hr): Vital Signs - 24 hr 07/10/24 20:00 07/11/24 07:56 07/11/24 09:15 Temperature 96.8 F 97.5 F Pulse Rate 71 76 70 Respiratory Rate 17 Blood Pressure 124/74 174/87 H 124/77 Pulse Oximetry 98 95 Oxygen Delivery Method Room Air Room Air BMI result Body Mass Index 48.3 Labs 06/24/24 23:47 06/24/24 23:47 Imaging Radiology Impressions: ITS Impressions Lumbar Spine X-Ray 06/29/24 09:00 IMPRESSION: Spondylosis L4-5 and L5-S1 resulting in grade 1 anterolisthesis. No acute fracture. Electronically signed by: Marco Antonio Magdaleno MD 06/29/2024 09:44 AM [facility] [place], [place] Medications Medications Current Medications Acetaminophen (Acetaminophen 325 Mg Tablet) 650 mg PO Q6H PRN PRN Reason: Headache/Pain Mild Scale (1-3) Last Admin: 07/11/24 10:22 Dose: 650 mg Al Hydroxide/Mg Hydroxide (Magnesium Hydrox/Alum Hydrox 30 Ml Oral.Susp) 30 ml PO Q6H PRN PRN Reason: Heartburn/Nausea Last Admin: 07/10/24 21:09 Dose: 30 ml Benzocaine (Throat Lozenge, Medicated Lozenge) 1 lozenge MUCOUS MEM Q2H PRN PRN Reason: Sore Throat Last Admin: 07/10/24 22:32 Dose: 1 lozenge Capsaicin (Capsaicin 0.025% Cream 60 Gm Tube) 1 appl TOPICAL QID PRN; Protocol PRN Reason: knee pain Gabapentin (Gabapentin 600 Mg Tablet) 1,200 mg PO TID [facility] Last Admin: 07/11/24 08:01 Dose: 1,200 mg Hydroxyzine HCl (Hydroxyzine Hcl 25 Mg Tablet) 25 mg PO Q6H PRN PRN Reason: Anxiety Last Admin: 07/09/24 18:21 Dose: 25 mg Lamotrigine (Lamotrigine 100 Mg Tablet) 100 mg PO BID [facility] Last Admin: 07/11/24 08:01 Dose: 100 mg Lidocaine (Lidocaine 4 % Patch Adh..Patch) 1 patch TRANSDERMA DAILY [facility]; Protocol Last Admin: 07/11/24 08:02 Dose: 1 patch Loratadine (Loratadine 10 Mg Tablet) 10 mg PO DAILY PRN PRN Reason: Allergy Symptoms Magnesium Hydroxide (Milk Of Magnesia 30 Ml Oral.Susp) 30 ml PO DAILY PRN PRN Reason: Constipation Last Admin: 06/27/24 18:34 Dose: 30 ml Melatonin (Melatonin 3 Mg Tablet) 9 mg PO BEDTIME [facility] Last Admin: 07/10/24 22:30 Dose: 9 mg Non-Formulary Medication (Albuterol-Budesonide [Airsupra]) 2 inhalation INHALE Q4H PRN PRN Reason: wheezing Last Admin: 07/11/24 08:13 Dose: 2 inhalation Nystatin (Nystatin Powder 15 Gm Bottle) 1 appl TOPICAL BID [facility]; Protocol Last Admin: 07/11/24 08:13 Dose: 1 appl Risperidone (Risperidone 1 Mg Tablet) 1 mg PO BID [facility] Last Admin: 07/11/24 08:01 Dose: 1 mg Simethicone (Simethicone 80 Mg Tab.Chew) 80 mg PO QIDWMHS PRN PRN Reason: Gas Last Admin: 07/07/24 20:19 Dose: 80 mg Trazodone HCl (Trazodone Hcl 50 Mg Tablet) 50 mg PO BEDTIME MRX1 PRN PRN Reason: Insomnia Last Admin: 07/09/24 21:23 Dose: 50 mg Venlafaxine HCl (Venlafaxine Hcl Er 75 Mg Cap.Er.24h) 225 mg PO DAILY [facility] Last Admin: 07/11/24 08:00 Dose: 225 mg Allergies Allergies Allergy/AdvReac Type Severity Reaction Status Date / Time seafood Allergy Itching Verified 06/24/24 23:32 Assessment & Plan Assessment & Plan (1) Severe recurrent major depression w/psychotic features, mood-congruent: Status: Acute Code(s): F33.3 - Major depressive disorder, recurrent, severe with psychotic symptoms Assessment and Plan: 07/03/24 Increase Olanzapine to 5 mg bid from 2.5 mg bid. Plan 07/07/24 continue current plan/regime. 07/08/2024: Continue current regimen and plans 07/09/2024: Continue current regimen and plans 07/10/24: BELEM Geodon Risperdal 1 mg bid 07/11/2024 continue tx. Reason for continued inpatient stay Substantial Risk for: inability to function Time Spent With Patient Time: Total time managing care of this patient today ____ minutes.
[2024-07-11] MEDS: hydrOXYzine HCL 25 MG TABLET PO (14:04)
[2024-07-11 20:00] VITALS: BP 109/58; PULSE 77; RESP 16; TEMP 36.1; O2SAT 96
[2024-07-11] MEDS: Melatonin 3 MG TABLET 9 MG PO (21:04)
[2024-07-11] MEDS: traZODone HCL 50 MG TABLET PO (21:19)
[2024-07-12 07:50] VITALS: BP 156/71; PULSE 69; TEMP 36.9; O2SAT 96
[2024-07-12] MEDS: Venlafaxine HCl ER 75 MG CAP.ER.24H 225 MG PO (09:33)
[2024-07-12] MEDS: lamoTRIgine 100 MG TABLET PO ×2 (09:34→20:26)
[2024-07-12] MEDS: risperiDONE 1 MG TABLET PO ×2 (09:34→20:27)
[2024-07-12] MEDS: Gabapentin 600 MG TABLET 1200 MG PO ×3 (09:34→20:26)
[2024-07-12] MEDS: Nystatin Powder 15 GM BOTTLE 1 APPL TOPICAL (09:35)
[2024-07-12] MEDS: Lidocaine 4 % Patch ADH..PATCH 1 PATCH TRANSDERMA (09:35)
[2024-07-12 12:45] VITALS: BP 140/64; PULSE 62
[2024-07-12 14:49] LABS: Folate 5.2 ng/mL (> or = 4.0); Vitamin B12 808 pg/mL (200-900)
[2024-07-12] MEDS: Sulfamethox/Trimeth 800/160 TABLET 1 TAB PO (14:59)
--- NOTE | 2024-07-12 15:14 | P.PNPSI_ITS ---
Subjective Subjective Date of Service: 07/12/24 Reason For Visit: psychosis/SI Subjective Notes: Conditional Voluntary Healthcare Proxy: No Guardianship: No Medical Problems Affecting Mental Status: No Interim History: I was totally unheard yesterday and I am very angry. I was lied to. I hear music now and the songs change. I have no plan, this is uncomfortable, disrespectful, [facility] was to come yesterday, they did not. My daughter is working this weekend and I will be alone for a time on Wednesday, Wednesday, Wednesday. Discussed discharge for 07/13. Met with pt x 3. Education provided regarding in pt goals, transition to out pt and goals for OP as well as insurance company involvement. Pt has appts arranged by team- a crisis visit on 07/14, a med visit on 07/18, pending therapy visit and nurse behavioral health care manager visit on 07/14. Discussed with pt asking her children to check in by calling, possibly a visit. She will work on this today Pt met with Pastor Miles and felt supported. Review of sx. ?Gabapentin is high, pt not wanting to decrease. ?UTI on admit- will give Bactrim x 1 and will get MRI, Brain to assess further. It appears pt is having some anxiety about discharge. We will proceed. She plans for 11:45am Medication Compliance: Yes Side effects from medications: No Attending Groups: Yes Review of Systems Acute medical concerns: No Medical Review of Systems: unchanged Review of Systems Review of Systems Hearing music at times she reports Mental Status Exam Mental Status Exam Patient Appearance: Appropriate Patient Orientation: Person, Place, Time and Situation Level of Consciousness: Alert Patient Behavior: Talkative, Cooperative and Good Eye Contact Mood Description: Anxious, Angry and Apprehensive Affect Description: Anxious, Angry and Apprehensive Patient Cognition Impaired: No Ability to Follow Directions: Good Speech Pattern: Spontaneous Speech Memory Description: Episodic Impaired Hallucinations: Auditory (hears music) Delusions: Not Present Thought Process: Distracted Thought Content: positive for Circumstantial, positive for Perseveration and positive for Suicidal Ideation (denies) Depressive Symptoms: Increased Anxiety, Increased Irritability and Thoughts of /Suicide (denies) Judgement: Good Diagnostics Vital Signs (24Hr): Vital Signs - 24 hr 07/11/24 20:00 07/12/24 07:50 Temperature 97.0 F 98.5 F Pulse Rate 77 69 Respiratory Rate 16 Blood Pressure 109/58 L 156/71 H Pulse Oximetry 96 96 Oxygen Delivery Method Room Air Room Air BMI result Body Mass Index 48.3 Labs 06/24/24 23:47 06/24/24 23:47 Labs: Laboratory Results - last 48 hr 07/12/24 13:06 Vitamin B12 808 Folate 5.2 Imaging Radiology Impressions: ITS Impressions Lumbar Spine X-Ray 06/29/24 09:00 IMPRESSION: Spondylosis L4-5 and L5-S1 resulting in grade 1 anterolisthesis. No acute fracture. Electronically signed by: Marco Antonio Magdaleno MD 06/29/2024 09:44 AM [facility] [place] Medications Medications Current Medications Acetaminophen (Acetaminophen 325 Mg Tablet) 650 mg PO Q6H PRN PRN Reason: Headache/Pain Mild Scale (1-3) Last Admin: 07/11/24 10:22 Dose: 650 mg Al Hydroxide/Mg Hydroxide (Magnesium Hydrox/Alum Hydrox 30 Ml Oral.Susp) 30 ml PO Q6H PRN PRN Reason: Heartburn/Nausea Last Admin: 07/10/24 21:09 Dose: 30 ml Benzocaine (Throat Lozenge, Medicated Lozenge) 1 lozenge MUCOUS MEM Q2H PRN PRN Reason: Sore Throat Last Admin: 07/10/24 22:32 Dose: 1 lozenge Capsaicin (Capsaicin 0.025% Cream 60 Gm Tube) 1 appl TOPICAL QID PRN; Protocol PRN Reason: knee pain Gabapentin (Gabapentin 600 Mg Tablet) 1,200 mg PO TID [facility] Last Admin: 07/12/24 14:59 Dose: 1,200 mg Hydroxyzine HCl (Hydroxyzine Hcl 25 Mg Tablet) 25 mg PO Q6H PRN PRN Reason: Anxiety Last Admin: 07/11/24 14:04 Dose: 25 mg Lamotrigine (Lamotrigine 100 Mg Tablet) 100 mg PO BID [facility] Last Admin: 07/12/24 09:34 Dose: 100 mg Lidocaine (Lidocaine 4 % Patch Adh..Patch) 1 patch TRANSDERMA DAILY [facility]; Protocol Last Admin: 07/12/24 09:35 Dose: 1 patch Loratadine (Loratadine 10 Mg Tablet) 10 mg PO DAILY PRN PRN Reason: Allergy Symptoms Magnesium Hydroxide (Milk Of Magnesia 30 Ml Oral.Susp) 30 ml PO DAILY PRN PRN Reason: Constipation Last Admin: 06/27/24 18:34 Dose: 30 ml Melatonin (Melatonin 3 Mg Tablet) 9 mg PO BEDTIME [facility] Last Admin: 07/11/24 21:04 Dose: 9 mg Non-Formulary Medication (Albuterol-Budesonide [Airsupra]) 2 inhalation INHALE Q4H PRN PRN Reason: wheezing Last Admin: 07/11/24 21:24 Dose: 2 inhalation Nystatin (Nystatin Powder 15 Gm Bottle) 1 appl TOPICAL BID [facility]; Protocol Last Admin: 07/12/24 09:35 Dose: 1 appl Risperidone (Risperidone 1 Mg Tablet) 1 mg PO BID [facility] Last Admin: 07/12/24 09:34 Dose: 1 mg Simethicone (Simethicone 80 Mg Tab.Chew) 80 mg PO QIDWMHS PRN PRN Reason: Gas Last Admin: 07/07/24 20:19 Dose: 80 mg Trazodone HCl (Trazodone Hcl 50 Mg Tablet) 50 mg PO BEDTIME MRX1 PRN PRN Reason: Insomnia Last Admin: 07/11/24 21:19 Dose: 50 mg Venlafaxine HCl (Venlafaxine Hcl Er 75 Mg Cap.Er.24h) 225 mg PO DAILY [facility] Last Admin: 07/12/24 09:33 Dose: 225 mg Allergies Allergies Allergy/AdvReac Type Severity Reaction Status Date / Time seafood Allergy Itching Verified 06/24/24 23:32 Assessment & Plan Assessment & Plan (1) Severe recurrent major depression w/psychotic features, mood-congruent: Status: Acute Code(s): F33.3 - Major depressive disorder, recurrent, severe with psychotic symptoms Assessment and Plan: 07/03/24 Increase Olanzapine to 5 mg bid from 2.5 mg bid. Plan 07/07/24 continue current plan/regime. 07/08/2024: Continue current regimen and plans 07/09/2024: Continue current regimen and plans 07/10/24: DC Geodon Risperdal 1 mg bid 07/11/2024 continue tx. 07/12/24 Discharge 07/13 Reason for continued inpatient stay Substantial Risk for: stable for discharge Time Spent With Patient Time: Total time managing care of this patient today ____ minutes.
[2024-07-12 16:30] VITALS: BP 150/84; PULSE 88
--- NOTE | 2024-07-12 17:58 | HE.NUR.EV ---
Status Change: med error. Medicated with the wrong med (ritalin 20mg) at 11:19am. Immediate Actions Taken:Called Provider, informed charge nurse, spoke with Nick Mark Director of , spoke with Aleah support analyst. Immediately made patient aware. Notifications:as stated above. Further Monitoring and Treatment: check BP and Pulse q 4 hours x 8 hours; assess patient. Patient made no complaints of noticing any symptoms. Vitals remained WNL.
[2024-07-12 19:35] VITALS: BP 154/88; PULSE 73; RESP 16; TEMP 36.7; O2SAT 96
[2024-07-12] MEDS: Melatonin 3 MG TABLET 9 MG PO (20:26)
[2024-07-12] MEDS: hydrOXYzine HCL 25 MG TABLET PO (20:26)
[2024-07-12] MEDS: traZODone HCL 50 MG TABLET PO (20:27)
[2024-07-13 08:00] VITALS: BP 157/68; PULSE 72; RESP 17; TEMP 36.8; O2SAT 96
[2024-07-13] MEDS: lamoTRIgine 100 MG TABLET PO (08:25)
[2024-07-13] MEDS: Venlafaxine HCl ER 75 MG CAP.ER.24H 225 MG PO (08:25)
[2024-07-13] MEDS: risperiDONE 1 MG TABLET PO (08:25)
[2024-07-13] MEDS: Gabapentin 600 MG TABLET 1200 MG PO (08:25)
--- NOTE | 2024-07-13 11:01 | PM.PSYDC ---
DS: Providers Provider Date of admission: 06/26/24 13:18 Primary care physician: Unknown Physician Consults: 06/29/24 14:08 Consult to Psychiatry Routine Consulting Provider: [facility] Psych Covering Reason for consultation: ECT Has provider been notified: Yes DS: Diagnosis Discharge Diagnosis (1) Severe recurrent major depression w/psychotic features, mood-congruent: Status: Acute DS: Medications Discharge Medications Home Medications: Home Medications ?Medication ?Instructions ?Recorded ?Confirmed albuterol 90 mcg-budesonide 80 2 inh inhalation Q4H PRN wheezing 06/24/24 06/24/24 mcg/actuation HFA aerosol inhaler (Airsupra) levocetirizine 5 mg tablet 5 mg PO DAILY PRN Allergy Symptoms 06/25/24 06/25/24 Previous Rx's ?Medication ?Instructions ?Recorded acetaminophen 325 mg tablet 650 mg (2 x 325 mg) PO Q6H PRN 07/12/24 Headache/Pain Mild Scale (1-3) #0 tabs gabapentin 600 mg tablet 1,200 mg (2 x 600 mg) PO TID #180 07/12/24 tabs lamotrigine 250 mg tablet,extended 250 mg PO DAILY #30 tabs 07/12/24 release 24 hr lidocaine 4 % topical patch 1 patch transdermal DAILY #30 ea 07/12/24 (Lidocaine Pain Relief) melatonin 10 mg tablet 10 mg PO BEDTIME PRN Sleep #30 tabs 07/12/24 nystatin 100,000 unit/gram topical 1 appl topical BID #0 grams 07/12/24 powder risperidone 1 mg tablet 1 mg PO BID #60 tabs 07/12/24 simethicone 80 mg chewable tablet 80 mg PO QIDWMHS PRN Gas #0 tabs 07/12/24 (Gas Relief (simethicone)) trazodone 50 mg tablet 50 mg PO BEDTIME MRX1 PRN Insomnia 07/12/24 #60 tabs venlafaxine 225 mg tablet,extended 225 mg PO DAILY #30 tabs 07/12/24 release 24 hr Data Data Completed and Pending Completed studies during hospitalization [Text1]: 07/12/24 13:06 Vitamin B12 808 Folate 5.2 06/25/24 Unknown Urine clean catch - Clean Catch Midstream Urine Culture - Final Imaging Diagnostic Imaging Impressions Lumbar Spine X-Ray 06/29/24 09:00 IMPRESSION: Spondylosis L4-5 and L5-S1 resulting in grade 1 anterolisthesis. No acute fracture. Electronically signed by: Marco Antonio Magdaleno MD 06/29/2024 09:44 AM [facility] DS: Summary Time Spent with Patient Time attestation: Total time managing care of this patient today ____ minutes. Discharge Plan Discharge Anticipated Discharge Date/Time: 07/13/24 12:00 Patient Disposition: Home, Self-Care Discharge Diagnosis: Recurrent major depression, severe with psychotic features Referrals: [facility] [Other] - 07/13/24 (Fax- [phone] [facility] will restart at D/C. VNA will come to your home tonight.) Makenzie Rubio NP [Other] - 07/18/24 1:00 pm (Hospital discharge appointment Appointment is by video (tele-health)) Kelli Stokes: [facility] (therapist) [Other] - 1 Week (Your outpatient therapist will follow-up with you after discharge to schedule appointment. ) [facility] Crisis [Other] - 07/14/24 10:00 am (Hospital discharge follow-up appointment with platform material handling supervisor. Appointment will be 2 hours in person at your home of residence.) [facility]:Partial hospitalization program (PHP) [Other] - 08/10/24 8:00 am (Referral for [facility] Partial hospitalization program. Scheduled intake will be in person at [facility]: PHP program. You will be placed on cancellation list and may be called earlier for a sooner intake.) Stefany (nurse healthcare advisory services manager): [facility] [Other] - 07/14/24 (Hospital discharge follow-up with outpatient community support team Team is aware of need for support in referral to pcp for home health aide evaluation and community support program. ) Herberth Tatum MD [Physician] - 07/17/24 10:45 am (In office appointment ) Discharge Medications: New acetaminophen 325 mg Tablet 650 mg PO Q6H PRN (Reason: Headache/Pain Mild Scale (1-3)) Qty: 0 0RF lidocaine [Lidocaine Pain Relief] 4 % Adhesive Patch,Medicated 1 patch transdermal DAILY Qty: 30 0RF Protocol: Apply to: Apply to: Right knee trazodone 50 mg Tablet 50 mg PO BEDTIME MRX1 PRN (Reason: Insomnia) Qty: 60 0RF nystatin 100,000 unit/gram Powder 1 appl topical BID Qty: 0 0RF Protocol: Apply to: Apply to: skin folds risperidone 1 mg Tablet 1 mg PO BID Qty: 60 0RF simethicone [Gas Relief (simethicone)] 80 mg Tablet,Chewable 80 mg PO QIDWMHS PRN (Reason: Gas) Qty: 0 0RF venlafaxine 225 mg tablet extended release 24hr 225 mg PO DAILY Qty: 30 0RF Continued Airsupra 90-80 mcg/actuation HFA aerosol inhaler 2 inh inhalation Q4H PRN (Reason: wheezing) levocetirizine 5 mg tablet 5 mg PO DAILY PRN (Reason: Allergy Symptoms) gabapentin 600 mg tablet 1,200 mg PO TID Qty: 180 0RF lamotrigine 250 mg tablet extended release 24hr 250 mg PO DAILY Qty: 30 0RF melatonin 10 mg tablet 10 mg PO BEDTIME PRN (Reason: Sleep) Qty: 30 0RF Discontinued venlafaxine 150 mg capsule,extended release 24hr 150 mg PO BEDTIME Discharge Orders: Discharge Order (Routine); Ordered 07/13/24 Ordered By: Soraida Kaba Diet: Advance to usual diet Activity on Discharge: As tolerated Stand Alone Forms: Patient Portal Discharge page, Community Support Print Language: Nepali Care Plan Goals: Mood and Behavioral Stabilization Health Concerns: Mood and Behavioral Stabilization Plan of Treatment: Attend scheduled appointments Take medications as directed
== END 2024-07-13 11:44 | disposition home or self-care (01) | DRG 751 ==
LOC: HO.ED 06-26 13:16 → HO.PM5 06-26 13:27
PROVIDERS: Emergency Medicine; Admitting Provider Psychiatry & Neurology Psychiatry; Emergency Provider Emergency Medicine Emergency Medical Services; Visit Provider Clinical Nurse Specialist Psychiatric/Mental Health, Adult
DX: F33.3 Major depressive disorder, recurrent, severe with psychotic symptoms (principal); R45.851 Suicidal ideations; Z23 Encounter for immunization; Z79.899 Other long term (current) drug therapy; Z87.891 Personal history of nicotine dependence
CPT/HCPCS: 36415; 72110; 80053; 80061; 80143; 80179; 80307; 81001; 82607; 82746; 83036; 84443; 85025; 87086; 90656; 93005; 94660; 97161; 99285; S9485

== ENCOUNTER → 2024-06-26 10:37 | Outpatient (BNV) | payer OTHER, SELFPAY | PROVIDERS: Admitting Provider Psychiatry & Neurology Psychiatry; Emergency Provider Emergency Medicine Emergency Medical Services; Visit Provider Internal Medicine | DX: R94.31 Abnormal electrocardiogram [ECG] [EKG] (principal) | CPT/HCPCS: 93010 ==

== ENCOUNTER 2024-06-26 13:18 | Outpatient (BNV) | payer OTHER, SELFPAY | END 2024-06-29 09:00 | PROVIDERS: Admitting Provider Psychiatry & Neurology Psychiatry; Emergency Provider Emergency Medicine Emergency Medical Services; Visit Provider Radiology Diagnostic Radiology | DX: M47.896 Other spondylosis, lumbar region (principal) | CPT/HCPCS: 72110 ==

== ENCOUNTER → 2024-06-26 13:18 | Outpatient (BNV) | payer OTHER, SELFPAY | PROVIDERS: Admitting Provider Psychiatry & Neurology Psychiatry; Emergency Provider Emergency Medicine Emergency Medical Services; Visit Provider Clinical Nurse Specialist Psychiatric/Mental Health, Adult | DX: F33.3 Major depressive disorder, recurrent, severe with psychotic symptoms (principal) | CPT/HCPCS: 99232 ==